=== PATIENT | female | born 1955 | race Caucasian/White ===

== ENCOUNTER 2019-07-19 23:20 | Observation (INO) | payer OTHER, MEDICARE ==
[~2019-07-19] VITALS: Ht 160 cm; Wt 70.9 kg
[~2019-07-19 23:20] MED LIST: ASPIRIN EC81 MG PO; CHANTIX1 EACH PO; COLACE100 MG PO; HYDROCHLOROTHIA25 MG PO; NORCO 5-325 TA1 EACH PO; SIMVASTATIN20 MG PO
--- NOTE | 2019-07-20 02:00 | NUR ---
PT ADMITTED WITH AFIB/RVR, HAD SUDDEN ONSET OF SHORTNESS OF BREATH AT HOME FOR 3 HOURS, ARRIVED TO ED WITH SPO2 60'S ON ROOM AIR AND HR 150'S. RECEIVED IV CARDIZEM AND DRIP IN ED, CURRENTLY NO DRIP RUNNING. PT IS ALERT AND ORIENTED X4, TRANSFERS SELF TO BED STEADY ON FEET. DENIES PAIN OR SOB AT THIS TIME. CURRENTLY ON 4L/OXYMASK.
--- NOTE | 2019-07-20 04:20 | NUR ---
Patient was moaning and groaning, I went to check and she said that she was having "kishan horses". She asked if she could have some assistance using the BSC and I offered her fresh water. Nothing further was needed at this time.
--- NOTE | 2019-07-20 06:49 | NUR ---
IN TO GIVE AM LASIX AND POTASSIUM, PT SLEEPING BUT AWAKENS EASILY. DENIES NEEDS OR PAIN, HR HAS BEEN 70'S SINUS RHYTHM. O2 HAS BEEN TITRATED DOWN TO 2L/NC WITH SPOT 97%. STATES SHE WILL BE NEEDING TO GET UP TO VOID SOON AND WILL CALL WHEN SHE IS READY.
--- NOTE | 2019-07-20 08:37 | NUR ---
PT SITTING UP IN BED EATING BREAKFAST ALERT AND ORIENTED. REQUESTS TO USE BR, AMB WITH STANDBY ASSIST. NO C/O SOB OR PAIN WITH AMBULATION. VOID 650 ML CLEAR YELLOW URINE. BACK TO BED. ASSESSMENT COMPLETE. O2 TITRATED TO 1L NC, SATS 93%. CRACKLES NOTED BILAT IN BASES. NO OTHER REQUESTS AT THIS TIME. CALL LIGHT IN REACH.
--- NOTE | 2019-07-20 10:28 | NUR ---
PT SITTING UP IN BED VISITING WITH FAMILY AT BEDSIDE. PT DENIES SOB OR PAIN. O2 1L/NC IN PLACE, O2 SATS 97%. HR 70'S. CASE MANAGEMENT IN TO VISIT PATIENT. NO REQUESTS AT THIS TIME.
--- NOTE | 2019-07-20 10:36 | NUR ---
02 SATS 98% ON 1L NC, PT DENIES SOB. OXYGEN OFF, WILL MONITOR SATS.
--- NOTE | 2019-07-20 11:09 | NUR ---
PATIENT HAD AN 8 BEAT RUN OF TACHYCARDIA AT 1009. RHYTHM WAS WIDE, IRREGULAR, AND RATE WAS LESS THAN 150s. DR. COLINDRES AWARE. PATIENT ASYMPTOMATIC WITH THIS. PT AMBULATES INTO BATHROOM TO VOID AND DENIES FEELING ANY SHORTNESS OF BREATH. CONTINUE TO MONITOR. SP02 IS 94% ON ROOM AIR AT THIS TIME.
[2019-07-20] MEDS ORDERED: ESTRADIOL10 MCG PV (11:33)
[2019-07-20] MEDS ORDERED: RANITIDINE HCL150 M1 PO (11:33)
[2019-07-20] MEDS ORDERED: VENTOLIN HFA18 GM INH (11:34)
[2019-07-20] MEDS ORDERED: FISH OIL 1,0001 EAC5 PO (11:36)
[2019-07-20] MEDS ORDERED: VITAMIN D31000 UNI1 PO (11:36)
[2019-07-20] MEDS ORDERED: GARLIC500 MG PO (11:36)
--- NOTE | 2019-07-20 11:37 | NUR ---
Medications reconciled using pharmacy records and patient interview
--- NOTE | 2019-07-20 12:09 | NUR ---
PT UP T0 BR WITH MINIMAL ASSIST TO VOID 400 ML CL YELLOW UINE. PT BRANDO WELL. BACK TO BED. PT DENIES CHEST PAIN OR SOB. RA SATS 95%. FAMILY AT BEDSIDE. ASSESSMENT COMPLETE. FINE CRACKLES NOTED IN RIGHT LOWER LOBE.
--- NOTE | 2019-07-20 13:12 | NUR ---
PT SITTING UP IN BED VISITING WITH FAMILY. MEDS GIVEN PER MD ORDER. IV MAG STARTED, PT C/O PAIN IN LEFT WRIST WITH INFUSION. INFLUSION SLOWED. WARM BLANKET APPLIED FOR COMFORT. PT DENIES PAIN OR SOB. HR 70'S, O2 93% ON RA. NO REQUESTS AT THIS TIME. CALL LIGHT IN REACH.
--- NOTE | 2019-07-20 14:01 | NUR ---
DR. COLINDRES IN ROOM TO EVALUATE PATIENT. PLAN IS FOR PATIENT TO STAY ANOTHER EVENING AND LIKELY GO HOME IN THE AM. PATIENT TO BE STARTED ON COUMADIN. PATIENT STILL HAVING PAIN IN IV SITE ON LEFT ARM. PT REMAINS IN SINUS RHYTHM, HR 70s. PT TO TRANSFER TO THE MEDICAL FLOOR ON TELEMETRY.
--- NOTE | 2019-07-20 15:15 | NUR ---
PT AMBULATORY TO MEDICAL FLOOR ROOM 116 FROM CCU. PT BRANDO WELL, STATES IT FEELS GOOD TO BE UP WALKING AROUND. REPORT GIVEN TO JOSE E TINAJERO. NO C/O SOB, RR EVEN AND UNLABORED. HR 70'S. TELE IN PLACE.
--- NOTE | 2019-07-20 15:18 | NUR ---
PT HERE FROM CCU. PT A&OX3, ON RA, RESP EVEN AND NON LABORED. PT DENIES PAIN AND SOB. PT DENIES ANY NEEDS AT THIS TIME. ORIENTED PT TO ROOM AND CALL LIGHT.
--- NOTE | 2019-07-20 18:42 | NUR ---
PT C/O OF SOB, AND "HAVING A HARD TIME BREATHING". VS TAKEN; BP 123/81, P81, R20, 96% ON RA. PLACED PT ON 2L OF OXYGEN AND CALLED DR. COLINDRES. NEW ORDER OBTAINED FOR DUONEB Q2HR PRN SOB. RT NOTIFIED TO ADMIN A/S/A/P. PT APPEARS ANXIOUS AND REPORTS HX OF ALBUTEROL USE PRN AT HOME.
--- NOTE | 2019-07-20 18:47 | NUR ---
RT IN ROOM FOR BREATHING TX.
--- NOTE | 2019-07-20 19:58 | NUR ---
RECEIVED REPORT FROM DAY SHIFT RN. PATIENT IS RESTING IN BED. FAMILY PRESENT. NO NEEDS NOTED. CALL LIGHT IN REACH.
--- NOTE | 2019-07-20 20:55 | NUR ---
DR COLINDRES CALLED TO ASK ABOUT PATIENTS STATUS. UPDATED MD. DR COLINDRES WOULD LIKE THIS RN TO ASK PATIENT ABOUT DIFFERENT PRN MEDICATIONS. WILL TALK TO PATIENT AND RETURN PHONE CALL.
--- NOTE | 2019-07-20 21:00 | NUR ---
DISCUSSED MEDICATIONS WITH PATIENT PER MD. PATIENT STATED THAT SHE TAKES ALLERGY MEDICATION NEEDED AT HOME. PATIENT ALSO TAKES NEEDED MEDICATION FOR CHRONIC SINUS ISSUES. UPDATE DR COLINDRES. DR COLINDRES TO PUT ORDERS IN FOR PATIENT.
--- NOTE | 2019-07-20 22:27 | NUR ---
PATIENT ASSESEMENT COMPLETED. PATIENT IS RESTING IN BED. PATIENT DENIES ANY SOB. VITALS TAKEN AND RECORDED. PATIENTS SCHEDULED EVENING MEDICATIONS GIVEN PER ORDER. PATIENT REMAINS ON TELE #6, SR, HR 72. DISCUSSED PRN MEDICATIONS AVAILABLE. PATIENT GIVEN PRN SUDAFED PER REQUEST FOR CONGESTION. PATIENT DENIES ANY FURTHER NEEDS. CALL LIGHT IN REACH.
--- NOTE | 2019-07-20 23:21 | NUR ---
PATIENT IS RESTING IN BED WITH EYES CLOSED, RR 17. TELE #6, SR, HR 70. CALL LIGHT IN REACH.
--- NOTE | 2019-07-21 01:06 | NUR ---
PATIENT IS RESTING IN BED WITH EYES CLOSED, RR 17. TELE #6, HR 70. CALL LIGHT IN REACH.
--- NOTE | 2019-07-21 03:01 | NUR ---
PATIENT CALLED WITH CONCERNS WITH HEARTBURN. PATIENT GIVEN PRN HEARTBURN MEDICATION PER ORDER. PATIENTS ICE WATER REFILLED. PATIENT DENIES ANY FURTHER NEEDS. CALL LIGHT IN REACH.
--- NOTE | 2019-07-21 04:50 | NUR ---
PATIENT RESTED WELL THROUGHOUT THE SHIFT. PATIENT IS ON A 2GM NA LIMIT DIET, TOLERATING IT WELL, AND NO NAUSEA NOTED. 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 NAGIT IS ON TELE $6, SR, HR IN THE 70'S. PATIENT IS INDEPENDENT IN THE ROOM. PATIENT DENIED ANY SOB. PATIENT HAD CONCERNS OF DISCOMFORT FROM SINUS CONGESTION, PRN MEDICATION GIVEN X1. PATIENT IS AAOX3 AND USES CALL LIGHT APPROPRIATELY.
--- NOTE | 2019-07-21 05:12 | NUR ---
PATIENTS VITALS TAKEN AND RECORDED. PATIENTS INTAKE AND OUPUT RECORDED. PATIENT IS RESTING IN BED. PATIENT DENIES ANY PAIN OR SOB. PATIENT DENIES ANY NEEDS. CALL LIGHT IN REACH. PATIENT REMAINS ON TELE #6, SR, HR 68.
--- NOTE | 2019-07-21 07:12 | NUR ---
RECIEVED BEDSIDE REPORT FROM JOSE E ALLEN. PT IN BATHROOM. WHITE BOARD UPDATED.
--- NOTE | 2019-07-21 09:18 | EKG ---
[facility] [address] [facility] [place] [address] Signed Atrial fibrillation with rapid ventricular response Rightward axis Abnormal ECG No previous ECGs available Confirmed by KAMAR COLINDRES MD ([id number]) on 07/21/2019 9:18:08 AM Electronically Signed By: KAMAR COLINDRES MD 07/21/19 0918 PATIENT NAME: MADISON ANDRES KARLA Electrocardiogram DATE OF : 51 PHYSICIAN: KAMAR COLINDRES MD REPORT #: [id number] REPORT IS CONFIDENTIAL AND NOT TO BE RELEASED WITHOUT AUTHORIZATION
--- NOTE | 2019-07-21 09:18 | EKG ---
[facility] [address] [facility] [place] [address] Signed Normal sinus rhythm Nonspecific ST and T wave abnormality Prolonged QT Abnormal ECG When compared with ECG of 19-JUL-2019 23:37, (Unconfirmed) Sinus rhythm has replaced Atrial fibrillation Vent. rate has decreased BY 67 BPM Inverted T waves have replaced nonspecific T wave abnormality in Inferior leads Nonspecific T wave abnormality now evident in Lateral leads Confirmed by KAMAR COLINDRES MD ([id number]) on 07/21/2019 9:18:22 AM Electronically Signed By: KAMAR COLINDRES MD 07/21/19 0918 PATIENT NAME: MADISON ANDRES KARLA Electrocardiogram DATE OF : 51 PHYSICIAN: KAMAR COLINDRES MD REPORT #: [id number] REPORT IS CONFIDENTIAL AND NOT TO BE RELEASED WITHOUT AUTHORIZATION
[2019-07-21] MEDS ORDERED: LISINOPRIL2.5 MG PO (09:56)
[2019-07-21] MEDS ORDERED: METOPROLOL SUCC25 MG PO (09:56)
[2019-07-21] MEDS ORDERED: WARFARIN SODIUM5 MG PO (09:57)
--- NOTE | 2019-07-21 09:58 | NUR ---
PATIENT WOULD LIKE TO SHOWER AT HOME WHEN DISCARGED TODAY. WASH CLOTH AND ORAL CARE SET UP FOR USE. FRESH ICE WATER GIVEN. CALL BUTTON IN REACH. NO OTHER NEEDS AT THIS TIME.
--- NOTE | 2019-07-21 11:33 | NUR ---
GAVE PT DISCHARGE INSTRUCTIONS AND EDUCATION. QUESTIONS ASKED AND ANSWERED. ANGEL, SORT OPERATIONS SUPERVISOR IN WITH PT NOW.
--- NOTE | 2019-07-21 11:39 | NUR ---
PATIENT GETTING READY TO DISCHARGE. SHE IS STARTED ON COUMADIN. SHE SAID SHE RECEIVED A LIST OF HIGH VITAMIN K FOODS AND LOW VITAMIN K FOODS. I PROVIDED HER WITH MY EDUCATION HANDOUT THAT ALSO INCLUDES FOODS HIGH IN VITAMIN K BUT ALSO INCLUDES REMINDERS ABOUT TAKING A MULTI-VITAMIN, VITAMIN E, FISH OIL, AND HERBAL SUPPLEMENTS. SHE ALREADY TAKES FISH OIL AND GARLIC. SHE APPRECIATED THE INFO.
--- NOTE | 2019-07-21 12:52 | NUR ---
Certified Heart Failure Nurse Notes: Diagnosis: Discharge Diagnosis/Diagnoses: #1. Acute respiratory failure with hypercapnia and hypoxia secondary to acute cardiogenic pulmonary edema, resolved #2. Systolic heart failure, new diagnosis, suspected acute on chronic, with left ventricular ejection fraction 25-30% with low normal right ventricular systolic function. #3. Acute cardiogenic pulmonary edema secondary to atrial fibrillation with rapid ventricular rate, resolved #4. Paroxysmal atrial fibrillation with rapid ventricular rate, new diagnosis, converted spontaneously to sinus rhythm #5. Moderate mitral regurgitation with moderately dilated left atrium #6. Transaminitis, secondary to #2 PCP: LULI CORNELIUS MD Echocardiogram was completed this visit EF 25-30% Terry Inhibitor or ARB for LVSD prescribed -Yes Beta David ordered -Yes Admit Wt.: 156 lb Today's Wt.: 156 lb Admit BNP: 1270 Weight monitoring: Scale present in home. Instructed how to weigh daily/ when to notify PCP Symptom management: Addressed monitoring and reporting changes in weight or symptoms utilizing Zones form Diet: Cooks for self, will be staying with family temporarily. Encouraged low sodium diet and avoid high processed foods. Seen by gumming machine operator for warfarin instructions. Medication routine: Has daily pill reminder box Tobacco: current use Advanced directive: Not discussed at this initial visit Follow-up plans: Patient with new diagnosis of HFrEF and is prepared for discharge. She is aware that this service will call her to come in for an outpatient heart failure education session to discuss diet and activity in detail. Will also look into referral to smoking cessation counseling. Teaching materials given today: Luis Alberto kurtz, [facility] contact information
--- NOTE | 2019-07-22 14:17 | NUR ---
Certified Heart Failure Nurse Follow Up Call: Dasia was discharged from [facility] 07/21/19. She states she is feeling weak. Was able to obtain medications as ordered and does not have any questions. Her follow up appointment with PCP Telly is on 07/29/19. She made an appointment to come in for a heart failure education session with this service on 07/28/19. She states she is not at her brothers and will call me back today.
== END 2019-07-21 11:50 | disposition home or self-care (01) ==
LOC: ED 23:20 → CCU 23:22 → MS 07-20 15:15
PROVIDERS: ADMIT Internal Medicine
DX: J96.01 Acute respiratory failure with hypoxia (principal); J96.02 Acute respiratory failure with hypercapnia; J81.0 Acute pulmonary edema; F17.210 Nicotine dependence, cigarettes, uncomplicated; I48.0 Paroxysmal atrial fibrillation; R74.0 Nonspecific elevation of levels of transaminase and lactic acid dehydrogenase [LDH]; J45.909 Unspecified asthma, uncomplicated; I11.0 Hypertensive heart disease with heart failure; I50.20 Unspecified systolic (congestive) heart failure; E78.5 Hyperlipidemia, unspecified; I51.7 Cardiomegaly; I34.0 Nonrheumatic mitral (valve) insufficiency; Z88.2 Allergy status to sulfonamides; Z79.82 Long term (current) use of aspirin; Z79.890 Hormone replacement therapy; Z79.899 Other long term (current) drug therapy
CPT/HCPCS: 36415; 36600; 71045; 80053; 82803; 83735; 83880; 84132; 84450; 84460; 84484; 85025; 85379; 85610; 93005; 93010; 93306; 94640; 94660; 94760; 96365; 96372; 96375; 96376; 99291; 99406; G0378; J1650; J1940; J3475

== ENCOUNTER 2020-09-09 06:26 | Day surgery (SDC) | payer MEDICARE ==
[~2020-09-09] VITALS: Ht 157.5 cm; Wt 78.9 kg
[~2020-09-09 06:26] MED LIST changes: +ALDACTONE25 MG PO; +COREG25 MG PO; +ENTRESTO 97 MG1 EACH PO; +ESTRADIOL10 MCG PV; +FISH OIL 1,0001 EAC5 PO; +GARLIC500 MG PO; +LIPITOR40 MG PO; +LISINOPRIL2.5 MG PO; +LISINOPRIL5 MG PO; +MAGNESIUM400 MG PO; +METOPROLOL SUCC25 MG PO; +OMEPRAZOLE20 M1 PO; +PREMARIN30 GM; +RANITIDINE HCL150 M1 PO; +VENTOLIN HFA18 GM INH; +VITAMIN D31000 UNI1 PO; +VITAMIN D350 MCG PO; +WARFARIN SODIUM1 MG PO; +WARFARIN SODIUM5 MG PO; +XARELTO20 MG PO
[2020-09-09] MEDS ORDERED: IBUPROFEN600 MG PO (08:16)
[2020-09-09] MEDS ORDERED: ACETAMINOPHEN500 MG PO (08:18)
[2020-09-09] MEDS ORDERED: OXYCODON-ACETA1 EACH PO (08:20)
--- NOTE | 2020-09-09 08:22 | NUR ---
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 PT REACTIVE TO TACTILE STIMULI AND EASILY FALLS BACK TO SLEEP. 0815 PT WAKES AND DENIES PAIN AND REPORTS UNABLE TO MOVE LEGS AND ONLY LIGHT PRESSURE WITH TOUCHING. PT BACK TO SLEEP WITH SMALL AMOUNT OF SNORING. 0820 BP INCREASED. RN WILL CONTINUE TO MONITOR.
--- NOTE | 2020-09-09 09:27 | NUR ---
PT RETURNED TO DS ROOM 4. SPINAL LEVEL AT L4. PT FEELS SOME WEAKNESS IN BILAT LOWER EXTREMITIES. DENIES PAIN OR NAUSEA
--- NOTE | 2020-09-09 11:35 | NUR ---
STEADY ON FEET WITH ONE PERSON STAND BY ASSIST FOR AMBULATION TO BR. CONTINUES TO DENY NAUSEA OR PAIN. REVIEWED DISCHARGE INSTRUCTIONS WITH PT AT BEDSIDE. CONFIRMED TO NOT START XRALTO UNTIL SATURDAY (09/11/20). PT GETS DRESSED SITTING DOWN WITHOUT PROBLEMS. DISCHARGED WITH PT INSTRUCTIONS AND ORIGIONAL RX.
--- NOTE | 2020-09-12 15:17 | OR ---
[facility] [address] [place], [place] [address] Signed DATE OF OPERATION: 09/09/2020 SURGEON: Bonita Hemphill MD PREOPERATIVE DIAGNOSIS: Pilonidal disease. POSTOPERATIVE DIAGNOSIS: Pilonidal disease. PROCEDURE: Pilonidal excision. ANESTHESIA: Saddle block, Victoria JAVA DEVELOPER ANALYST and local 20 mL of 0.25% Marcaine with epinephrine. INDICATION: A 65-year-old white woman is a patient of Dr. 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 She has had no specific drainage procedure. She is here to undergo excision of pilonidal disease. She understands the risks of bleeding, infection, recurrence and so forth and wished to proceed. FINDINGS: A chronic erythematous pustule like lesion was noted to the right of the midline in internatal cleft. This was connected to the midline itself. There was no large collection of hair or anything of that sort, only chronic granulation. Limited internatal cleft excision was undertaken excising all the diseased tissue. DESCRIPTION OF PROCEDURE: The patient was brought to the operating room after undergoing a saddle block anesthetic in the preoperative area. She did have some vagal symptoms with this, which abated with time. She was placed in a prone jackknife position and buttocks were taped apart. The internatal cleft area was prepared with a Betadine based solution and draped sterilely. Probing of the site to the right of the midline showed it to connect to the midline itself. Elliptical incision was undertaken in a limited way of the internatal cleft soft tissue including the subcutaneous tissue and fat. There was a chronic granulation tissue within the excised tissue. Hemostasis was assured with electrocautery. A 20 mL of 0.25% Marcaine with epinephrine injected locally. The wound was packed with . The patient returned to the supine position and taken to the recovery room Electronically Signed By: BONITA HEMPHILL MD 09/12/20 1517 PATIENT NAME: MADISON ANDRES OPERATIVE REPORT DATE OF : 51 REPORT #: [id number] PHYSICIAN: BONITA HEMPHILL MD PCP: KRISH CORNELIUS MD REPORT IS CONFIDENTIAL AND NOT TO BE RELEASED WITHOUT AUTHORIZATION [facility] [address] [place] [id number] Signed in good condition. BLOOD LOSS: Minimal. COMPLICATIONS: None. MD SCOTT Holly/MODL /[id number] cc: Krish Cornelius Copies: ~ Electronically Signed By: BONITA HEMPHILL MD 09/12/20 1517 PATIENT NAME: MADISON ANDRES OPERATIVE REPORT DATE OF : 51 REPORT #: [id number] PHYSICIAN: BONITA HEMPHILL MD PCP: KRISH CORNELIUS MD REPORT IS CONFIDENTIAL AND NOT TO BE RELEASED WITHOUT AUTHORIZATION
--- NOTE | 2020-09-12 15:22 | PATH ---
[facility] [address] [facility] [place], [place] [address] Signed SPECIMEN(S): A PILONIDAL CYST TISSUE SPECIMEN SOURCE: A. PILONIDAL CYST TISSUE CLINICAL HISTORY: Pilonidal disease. Excision of pilonidal cyst. FINAL PATHOLOGIC DIAGNOSIS: Pilonidal cyst tissue: - Benign skin with intradermal benign squamous epithelial cyst and abundant acute intradermal inflammation and abscess. COMMENT: The histologic features are compatible with the clinical history of "pilonidal disease". JVR:cml:C2NR MICROSCOPIC EXAMINATION: Histologic sections of all submitted blocks are examined by light microscopy. These findings, together with the gross examination, support the pathologic diagnosis. GROSS DESCRIPTION: The specimen, labeled "SB, A.," and designated on the requisition "pilonidal cyst tissue," is received in formalin and consists of la elliptical skin with deep subcutaneous tissue measuring 4.2 x 1.6 x 1.9 cm. The cutaneous surface is smooth and la with a previously sectioned lateral superficially cut measuring 4.0 cm in length. The specimen is serially sectioned and reveals hemorrhagic ulceration within the previous cut (possible sinus tract). Pearl Diver sections are submitted in cassette (A1). AT (under the direct supervision of a pathologist) The Gross Description was prepared using a voice recognition system. The report was reviewed for accuracy; however, sound-alike word errors, addition and/or deletions may occur. If there is any question about this report, please contact Client Services. PERFORMING LABORATORY: The technical component was performed by [facility], [address] [place] [id number] (Paint Stripper: Kinsey Steinberg MD; CLIA# [id number]). PATIENT NAME: MADISON ANDRES PATHOLOGY DATE OF : 51 REPORT #: [id number] PHYSICIAN: ROSEANNE PATHOLOGY PCP: LULI CORNELIUS MD REPORT IS CONFIDENTIAL AND NOT TO BE RELEASED WITHOUT AUTHORIZATION [facility] [address] [facility] [place] [place] [address] Signed Professional interpretation was performed [place] [address] (Paint Stripper: Anthony Santizo M.D.). Diagnostician: Anthony Santizo MD Pathologist Electronically Signed 09/12/2020 Copies: ~ PATIENT NAME: MADISON ANDRES PATHOLOGY DATE OF : 51 REPORT #: [id number] PHYSICIAN: ROSEANNE PATHOLOGY PCP: LULI CORNELIUS MD REPORT IS CONFIDENTIAL AND NOT TO BE RELEASED WITHOUT AUTHORIZATION
== END 2020-09-09 11:10 | disposition home or self-care (01) ==
LOC: DS 06:26
PROVIDERS: ATTEND Surgery
PROC: 0JB93ZZ Excision of Buttock Subcutaneous Tissue and Fascia, Percutaneous Approach (ICD-10-PCS; principal; 2020-09-09 06:45)
DX: L98.8 Other specified disorders of the skin and subcutaneous tissue (principal); I48.91 Unspecified atrial fibrillation; I50.9 Heart failure, unspecified; J43.9 Emphysema, unspecified; K21.9 Gastro-esophageal reflux disease without esophagitis; F17.210 Nicotine dependence, cigarettes, uncomplicated; Z88.2 Allergy status to sulfonamides; Z79.01 Long term (current) use of anticoagulants; Z79.899 Other long term (current) drug therapy; Z86.19 Personal history of other infectious and parasitic diseases
CPT/HCPCS: 00400; 93005; 93010; J0690; J1644; J2001; J2250; J2704; J3010; J7121

== ENCOUNTER 2023-04-25 21:11 | Emergency (ER) | payer OTHER, MEDICARE, MEDICAID ==
[~2023-04-25] VITALS: Ht 162.6 cm; Wt 88.1 kg
[~2023-04-25 21:11] MED LIST changes: +ACETAMINOPHEN500 MG PO; +IBUPROFEN600 MG PO; +OXYCODON-ACETA1 EACH PO
[2023-04-25] MEDS ORDERED: ESTRING1 EACH VAGINAL (21:25)
[2023-04-25 23:34] VITALS: BP 119/51
== END 2023-04-25 23:45 | disposition home or self-care (01) ==
LOC: ED 21:11
DX: S63.502A Unspecified sprain of left wrist, initial encounter (principal); W01.10XA Fall on same level from slipping, tripping and stumbling with subsequent striking against unspecified object, initial encounter; I10 Essential (primary) hypertension; E78.00 Pure hypercholesterolemia, unspecified; J45.909 Unspecified asthma, uncomplicated; F17.200 Nicotine dependence, unspecified, uncomplicated; Z88.2 Allergy status to sulfonamides; Z79.899 Other long term (current) drug therapy
CPT/HCPCS: 73110; 73130; 99283-25; A9270

== ENCOUNTER 2023-06-12 09:15 | Emergency (ER) | payer MEDICARE, OTHER ==
[~2023-06-12] VITALS: Ht 162.6 cm; Wt 88.0 kg
--- OUTSIDE RECORDS SUMMARY | ~2023-06-12 | XMS | Continuity of Care Document ---
Demographics + + + | Address | [address] | | | [place] [address] | + + + | Preferred Language | Unknown | + + + | Marital Status | | + + + | Islam Affiliation | Unknown | + + + | Race | White | + + + | Ethnic Group | Not or | + + + Author + + + | Author | [facility] | + + + | Organization | [facility] | + + + | Address | [address] | | | [place] [address] | + + + | Phone | | + + + Care Team Providers + + + + | Care Head Resident Name | Role | Phone | + + + + Unavailable | Unavailable | + + + + Unavailable | Unavailable | + + + + Unavailable | Unavailable | + + + + Allergies and Intolerances + + + + + + | date | description | facility | reaction | severity | + + + + + + | (no date) | Sulfa | [facility] | (no reaction) | (no severity) | | | (Sulfonamide | | | | | | Antibiotics) | | | | + + + + + + Encounters No information. Functional Status No information. Immunizations No information. Medications + + + + | date | description | facility | + + + + | 2020-09-09 00:00 | OXYCODONE | [facility] | | | HCL/ACETAMINOPHEN | | + + + + | 2020-09-09 00:00 | OXYCODONE | [facility] | | | HCL/ACETAMINOPHEN | | + + + + | 2023-04-25 00:00 | RIVAROXABAN | [facility] | + + + + | 2023-06-10 00:00 | RIVAROXABAN | [facility] | + + + + | 2023-06-10 00:00 | COLCHICINE | [facility] | + + + + | 2023-04-25 00:00 | SACUBITRIL/VALSARTAN | [facility] | + + + + | 2023-06-10 00:00 | SACUBITRIL/VALSARTAN | [facility] | + + + + | 2020-09-09 00:00 | IBUPROFEN | [facility] | + + + + | 2020-09-09 00:00 | IBUPROFEN | [facility] | + + + + | 2023-04-25 00:00 | RANITIDINE HCL | [facility] | + + + + | 2023-06-10 00:00 | RANITIDINE HCL | [facility] | + + + + | 2020-09-09 00:00 | ACETAMINOPHEN | [facility] | + + + + | 2020-09-09 00:00 | ACETAMINOPHEN | [facility] | + + + + | 2023-04-25 00:00 | GARLIC | [facility] | + + + + | 2023-06-10 00:00 | GARLIC | [facility] | + + + + | 2023-04-25 00:00 | CHOLECALCIFEROL (VITAMIN | [facility] | | | D3) | | + + + + | 2023-06-10 00:00 | CHOLECALCIFEROL (VITAMIN | [facility] | | | D3) | | + + + + | 2023-04-25 00:00 | SPIRONOLACTONE | [facility] | + + + + | 2023-06-10 00:00 | SPIRONOLACTONE | [facility] | + + + + | 2023-04-25 00:00 | CARVEDILOL | [facility] | + + + + | 2023-06-10 00:00 | CARVEDILOL | [facility] | + + + + | 2023-04-25 00:00 | MAGNESIUM OXIDE | [facility] | + + + + | 2023-06-10 00:00 | MAGNESIUM OXIDE | [facility] | + + + + | 2023-04-25 00:00 | ASPIRIN | [facility] | + + + + | 2023-06-10 00:00 | ASPIRIN | [facility] | + + + + | 2023-04-25 00:00 | HYDROCHLOROTHIAZIDE | [facility] | + + + + | 2023-06-10 00:00 | HYDROCHLOROTHIAZIDE | [facility] | + + + + | 2023-04-25 00:00 | LISINOPRIL | [facility] | + + + + | 2023-06-10 00:00 | LISINOPRIL | [facility] | + + + + | 2023-04-25 00:00 | SIMVASTATIN | [facility] | + + + + | 2023-06-10 00:00 | SIMVASTATIN | [facility] | + + + + | 2023-04-25 00:00 | OMEPRAZOLE | [facility] | + + + + | 2023-06-10 00:00 | OMEPRAZOLE | [facility] | + + + + | 2023-04-25 00:00 | ATORVASTATIN | [facility] | + + + + | 2023-06-10 00:00 | ATORVASTATIN | [facility] | + + + + | 2023-04-25 00:00 | Estrogens, Conjugated | [facility] | + + + + | 2023-06-10 00:00 | Estrogens, Conjugated | [facility] | + + + + | 2023-04-25 00:00 | VARENICLINE TARTRATE | [facility] | + + + + | 2023-06-10 00:00 | VARENICLINE TARTRATE | [facility] | + + + + | 2023-04-25 00:00 | Cholecalciferol (Vitamin | [facility] | | | D3) | | + + + + | 2023-06-10 00:00 | Cholecalciferol (Vitamin | [facility] | | | D3) | | + + + + | 2023-04-25 00:00 | OMEGA-3/DHA/EPA/FISH OIL | [facility] | + + + + | 2023-06-10 00:00 | OMEGA-3/DHA/EPA/FISH OIL | [facility] | + + + + | 2023-04-25 00:00 | ESTRADIOL | [facility] | + + + + | 2023-06-10 00:00 | ESTRADIOL | [facility] | + + + + | 2023-04-25 00:00 | WARFARIN SODIUM | [facility] | + + + + | 2023-06-10 00:00 | WARFARIN SODIUM | [facility] | + + + + | 2023-04-25 00:00 | ALBUTEROL SULFATE | [facility] | + + + + | 2023-06-10 00:00 | ALBUTEROL SULFATE | [facility] | + + + + | 2019-07-21 00:00 | METOPROLOL SUCCINATE | [facility] | + + + + | 2019-07-21 00:00 | METOPROLOL SUCCINATE | [facility] | + + + + | 2023-04-25 00:00 | Estradiol | [facility] | + + + + | 2023-06-10 00:00 | Estradiol | [facility] | + + + + Problems + + + + | date | description | facility | + + + + | 2016-12-20 00:00 | Sprain of right foot | [facility] | + + + + | 2016-12-20 00:00 | Sprain of right foot | [facility] | + + + + | 2016-12-20 00:00 | Encounter for medical | [facility] | | | screening examination | | + + + + | 2016-12-20 00:00 | Encounter for medical | [facility] | | | screening examination | | + + + + | 2019-07-20 00:00 | Flash pulmonary edema | [facility] | + + + + | 2019-07-20 00:00 | Flash pulmonary edema | [facility] | + + + + | 2022-09-28 12:07 | Essential (primary) | [facility] | | | hypertension | | + + + + | 2022-09-28 12:07 | CHRONIC ATRIAL | [facility] | | | FIBRILLATION, UNSPECIFIED | | + + + + | 2022-09-28 12:07 | COUGH, UNSPECIFIED | [facility] | + + + + | 2022-09-28 12:07 | SHORTNESS OF BREATH | [facility] | + + + + | 2022-10-15 11:41 | OTH ABN AND INCONCLUSIVE | [facility] | | | FINDINGS ON DX IMAGING OF | | | | BREAST | | + + + + | 2022-10-19 09:50 | HYPERTENSIVE HEART DISEASE | [facility] | | | WITH HEART FAILURE | | + + + + | 2022-10-19 09:50 | UNSPECIFIED ATRIAL | [facility] | | | FIBRILLATION | | + + + + | 2022-10-19 09:50 | HEART FAILURE, UNSPECIFIED | [facility] | | | | | + + + + | 2022-10-19 09:50 | OTHER SPECIFIED ABNORMAL | [facility] | | | FINDINGS OF BLOOD CHEMISTRY | | | | | | + + + + | 2022-10-19 09:50 | ENCOUNTER FOR THERAPEUTIC | [facility] | | | DRUG LEVEL MONITORING | | + + + + | 2022-11-06 07:45 | LOCALIZED SWELLING, MASS | [facility] | | | AND LUMP, TRUNK | | + + + + | 2022-11-06 07:45 | OTHER NONSPECIFIC ABNORMAL | [facility] | | | FINDING OF LUNG FIELD | | + + + + | 2023-02-11 09:53 | LIVER DISEASE, UNSPECIFIED | [facility] | | | | | + + + + | 2023-02-11 09:53 | HEPATOMEGALY, NOT | [facility] | | | ELSEWHERE CLASSIFIED | | + + + + | 2023-02-11 09:53 | ENCNTR FOR GENERAL ADULT | [facility] | | | MEDICAL EXAM W/O ABNORMAL | | | | FINDINGS | | + + + + | 2023-02-11 09:53 | ENCOUNTER FOR SCREENING | [facility] | | | FOR OSTEOPOROSIS | | + + + + | 2023-02-11 09:53 | ASYMPTOMATIC MENOPAUSAL | [facility] | | | STATE | | + + + + | 2023-03-21 15:30 | OTHER SPECIFIED DISORDERS | [facility] | | | OF BREAST | | + + + + | 2023-03-21 15:30 | ENCNTR SCREEN MAMMOGRAM | [facility] | | | FOR MALIGNANT NE | | + + + + | 2023-04-25 00:00 | Sprain of left wrist | [facility] | + + + + | 2023-04-25 00:00 | Sprain of left wrist | [facility] | + + + + | 2023-04-25 21:12 | PURE HYPERCHOLESTEROLEMIA, | [facility] | | | UNSPECIFIED | | + + + + | 2023-04-25 21:12 | NICOTINE DEPENDENCE, | [facility] | | | UNSPECIFIED, UNCOMPLICATED | | + + + + | 2023-04-25 21:12 | Essential (primary) | [facility] | | | hypertension | | + + + + | 2023-04-25 21:12 | UNSPECIFIED ASTHMA, | [facility] | | | UNCOMPLICATED | | + + + + | 2023-04-25 21:12 | PAIN IN LEFT WRIST | [facility] | + + + + | 2023-04-25 21:12 | UNSPECIFIED SPRAIN OF LEFT | [facility] | | | WRIST, INITIAL ENCOUNTE | | + + + + | 2023-04-25 21:12 | FALL SAME LEV FROM | [facility] | | | SLIP/TRIP W STRIKE AGNST | | | | UNSP O | | + + + + | 2023-04-25 21:12 | OTHER INSULATION POWER UNIT TENDER (CURRENT) | [facility] | | | DRUG THERAPY | | + + + + | 2023-04-25 21:12 | ALLERGY STATUS TO | [facility] | | | SULFONAMIDES STATUS | | + + + + | 2023-06-06 08:33 | UNILATERAL PRIMARY | [facility] | | | OSTEOARTHRITIS, UNSPE | | + + + + | 2023-06-06 08:33 | UNILATERAL PRIMARY | [facility] | | | OSTEOARTHRITIS, RIGHT HIP | | + + + + | 2023-06-06 09:00 | UNILATERAL PRIMARY | [facility] | | | OSTEOARTHRITIS, UNSPE | | + + + + | 2023-06-10 00:00 | Chest pain | [facility] | + + + + Procedures No information. Results/Labs +--------+--------+ +---------+--------+---------+ | test | date | facility | value | unit | notes | +--------+--------+ +---------+--------+---------+ + + | Result panel 1 | + + + + + +--------+ + + | | 2023-06-10 | [facility] | 11.1 | (missing) | (missing) | | (unavailable | 08:22:07 [facility] | | | | + + + +--------+ + + + + | Result panel 2 | + + + + + +--------+ + + | | 2023-06-10 | [facility] | 73.0 | (missing) | (missing) | | (unavailable | 08:22:07 | [facility] | | | | + + + +--------+ + + + + | Result panel 3 | + + + + + +--------+ + + | | 2023-06-10 | [facility] | 18.1 | (missing) | (missing) | | (unavailable | 08:22:07 | [facility] | | | | + + + +--------+ + + + + | Result panel 4 | + + + + + +-------+ + + | | 2023-06-10 | [facility] | 8.6 | (missing) | (missing) | | (unavailable | 08:22:07 | [facility] | | | | + + + +-------+ + + + + | Result panel 5 | + + + + + +-------+ + + | | 2023-06-10 | [facility] | 0.1 | (missing) | (missing) | | (unavailable | 08:: | [facility] | | | | + + + +-------+ + + + + | Result panel 6 | + + + + + +-------+ + + | | 2023-06-10 | [facility] | 0.2 | (missing) | (missing) | | (unavailable | 08:: | [facility] | | | | + + + +-------+ + + + + | Result panel 7 | + + + + + +-------+---------+ + | | 2023-06-10 | [facility] | 148 | mg/dL | (missing) | | (unavailable | 08::07 | [facility] | | | | + + + +-------+---------+ + + + | Result panel 8 | + + + + + +------+---------+ + | | 2023-06-10 | [facility] | 23 | mg/dL | (missing) | | (unavailable | 08:22:07 | [facility] | | | | + + + +------+---------+ + + + | Result panel 9 | + + + + + +--------+---------+ + | | 2023-06-10 | [facility] | 0.98 | mg/dL | (missing) | | (unavailable | 08:22:07 | [facility] | | | | + + + +--------+---------+ + + + | Result panel 10 | + + + + + +------+ + + | | 2023-06-10 | [facility] | 62 | (missing) | (missing) | | (unavailable | 08:22:07 | [facility] | | | | + + + +------+ + + + + | Result panel 11 | + + + + + +---------+ + + | | 2023-06-10 | [facility] | 23.46 | (missing) | (missing) | | (unavailable | 08:22:07 | [facility] | | | | + + + +---------+ + + + + | Result panel 12 | + + + + + +--------+ + + | | 2023-06-10 | [facility] | 4.33 | (missing) | (missing) | | (unavailable | 08:22:07 | [facility] | | | | + + + +--------+ + + + + | Result panel 13 | + + + + + +-------+ + + | | 2023-06-10 | [facility] | 136 | (missing) | (missing) | | (unavailable | 08:22:07 | [facility] | | | | + + + +-------+ + + + + | Result panel 14 | + + + + + +-------+ + + | | 2023-06-10 | [facility] | 3.7 | (missing) | (missing) | | (unavailable | 08:22:07 | [facility] | | | | + + + +-------+ + + + + | Result panel 15 | + + + + + +-------+ + + | | 2023-06-10 | [facility] | 101 | (missing) | (missing) | | (unavailable | 08:22:07 | [facility] | | | | + + + +-------+ + + + + | Result panel 16 | + + + + + +------+ + + | | 2023-06-10 | [facility] | 24 | (missing) | (missing) | | (unavailable | 08:22:07 | [facility] | | | | + + + +------+ + + + + | Result panel 17 | + + + + + +--------+ + + | | 2023-06-10 | [facility] | 14.7 | (missing) | (missing) | | (unavailable | | [facility] | | | | + + + +--------+ + + + + | Result panel 18 | + + + + + +-------+---------+ + | | 2023-06-10 | [facility] | 9.3 | mg/dL | (missing) | | (unavailable | 08:: [facility] | | | | + + + +-------+---------+ + + + | Result panel 19 | + + + + + +-------+ + + | | 2023-06-10 | [facility] | 7.5 | (missing) | (missing) | | (unavailable | 08: | [facility] | | | | + + + +-------+ + + + + | Result panel 20 | + + + + + +-------+ + + | | 2023-06-10 | [facility] | 3.6 | (missing) | (missing) | | (unavailable | 08::07 | [facility] | | | | + + + +-------+ + + + + | Result panel 21 | + + + + + +-------+ + + | | 2023-06-10 | [facility] | 3.9 | (missing) | (missing) | | (unavailable | 08:22:07 | [facility] | | | | + + + +-------+ + + + + | Result panel 22 | + + + + + +--------+ + + | | 2023-06-10 | [facility] | 0.92 | (missing) | (missing) | | (unavailable | 08:22:07 | [facility] | | | | + + + +--------+ + + + + | Result panel 23 | + + + + + +--------+ + + | | 2023-06-10 | [facility] | 13.0 | (missing) | (missing) | | (unavailable | 08:22:07 | [facility] | | | | + + + +--------+ + + + + | Result panel 24 | + + + + + +-------+ + + | | 2023-06-10 | [facility] | 0.4 | (missing) | (missing) | | (unavailable | 08:22:07 | [facility] | | | | + + + +-------+ + + + + | Result panel 25 | + + + + + +------+ + + | | 2023-06-10 | [facility] | 16 | (missing) | (missing) | | (unavailable | 08:22:07 | [facility] | | | | + + + +------+ + + + + | Result panel 26 | + + + + + +------+ + + | | 2023-06-10 | [facility] | 46 | (missing) | (missing) | | (unavailable | 08:22:07 | [facility] | | | | + + + +------+ + + + + | Result panel 27 | + + + + + +-------+ + + | | 2023-06-10 | [facility] | 163 | (missing) | (missing) | | (unavailable | 08:22:07 | [facility] | | | | + + + +-------+ + + + + | Result panel 28 | + + + + + +--------+ + + | | 2023-06-10 | [facility] | 40.0 | (missing) | (missing) | | (unavailable | 08:22:07 | [facility] | | | | + + + +--------+ + + + + | Result panel 29 | + + + + + +--------+ + + | | 2023-06-10 | [facility] | 92.4 | (missing) | (missing) | | (unavailable | 08:22:07 | [facility] | | | | + + + +--------+ + + + + | Result panel 30 | + + + + + +--------+ + + | | 2023-06-10 | [facility] | 29.9 | (missing) | (missing) | | (unavailable | 08:22:07 | [facility] | | | | + + + +--------+ + + + + | Result panel 31 | + + + + + +--------+ + + | | 2023-06-10 | [facility] | 32.4 | (missing) | (missing) | | (unavailable | 08:22:07 | [facility] | | | | + + + +--------+ + + + + | Result panel 32 | + + + + + +--------+ + + | | 2023-06-10 | [facility] | 13.9 | (missing) | (missing) | | (unavailable | 08:22:07 | [facility] | | | | + + + +--------+ + + + + | Result panel 33 | + + + + + +-------+ + + | | 2023-06-10 | [facility] | 350 | (missing) | (missing) | | (unavailable | 08:22:07 | [facility] | | | | + + + +-------+ + + + + | Result panel 34 | + + + + + +---------+ + + | | 2023-06-10 | [facility] | 178.7 | (missing) | (missing) | | (unavailable | 09:30:07 | [facility] | | | | + + + +---------+ + + Social History No information. Vital Signs + + + +---------+ | date | measurement | value | units | + + + +---------+ | 2023-04-25 00:00 | BMI | 33.3 | kg/m2 | + + + +---------+ | 2023-04-25 00:00 | BP_diastolic | 51 | mmHg | + + + +---------+ | 2023-04-25 00:00 | BP_systolic | 119 | mmHg | + + + +---------+ | 2023-04-25 00:00 | heart_rate | 67 | /min | + + + +---------+ | 2023-04-25 00:00 | height_metric | 162.56 | cm | + + + +---------+ | 2023-04-25 00:00 | height_standard | 64 | in | + + + +---------+ | 2023-04-25 00:00 | o2_saturation | 97 | % | + + + +---------+ | 2023-04-25 00:00 | respiration_rate | 16 | /min | + + + +---------+ | 2023-04-25 00:00 | temperature_metric | 37 | C | | | | | | + + + +---------+ | 2023-04-25 00:00 | | 98.6 | F | | | temperature_standar | | | | | d | | | + + + +---------+ | 2023-04-25 00:00 | weight_metric | 88.1 | kg | + + + +---------+ | 2023-04-25 00:00 | weight_standard | 194.23 | lb | + + + +---------+ | 2023-06-10 00:00 | BMI | 33.3 | kg/m2 | + + + +---------+ | 2023-06-10 00:00 | BP_diastolic | 74 | mmHg | + + + +---------+ | 2023-06-10 00:00 | BP_systolic | 117 | mmHg | + + + +---------+ | 2023-06-10 00:00 | heart_rate | 60 | /min | + + + +---------+ | 2023-06-10 00:00 | height_metric | 162.56 | cm | + + + +---------+ | 2023-06-10 00:00 | height_standard | 64 | in | + + + +---------+ | 2023-06-10 00:00 | o2_saturation | 96 | % | + + + +---------+ | 2023-06-10 00:00 | respiration_rate | 17 | /min | + + + +---------+ | 2023-06-10 00:00 | temperature_metric | 36.83 | C | | | | | | + + + +---------+ | 2023-06-10 00:00 | | 98.3 | F | | | temperature_standar | | | | | d | | | + + + +---------+ | 2023-06-10 00:00 | weight_metric | 88.08 | kg | + + + +---------+ | 2023-06-10 00:00 | weight_standard | 194.18 | lb | + + + +---------+ | 2023-06-10 00:00 | weight_standard | 194.19 | lb | + + + +---------+"
[~2023-06-12 09:15] MED LIST changes: +COLCHICINE0.6 M1 PO; +ESTRING1 EACH VAGINAL
--- OUTSIDE RECORDS SUMMARY | 2023-06-12 09:19 | XMS ---
PreManage Notification: MADISON ANDRES Security Airline Counter Agent Events No recent Security Events currently on file CRITERIA MET - [facility] - 2 Visits in 30 Days CARE PROVIDERS JENNY Powell MD,ILDA Flight Crew Scheduler/Accounts Payable Specialist Current PHONE: [phone] LULI CORNELIUS [facility] 07/20/2019-Current PHONE: [phone] Alfonzo has no Care Guidelines for this patient. EShira VISIT COUNT (12 MO.) [address] [place] [address] TOTAL 3 NOTE: Visits indicate total known visits. ED/UCC VISIT TRACKING (12 MO.) 06/12/2023 09:16 [facility] TYPE: Emergency COMPLAINT: - BLACK STOOL 06/10/2023 08:15 [facility] [place] TYPE: Emergency COMPLAINT: - HEAVY BEATING HEART, CHEST PAIN DIAGNOSES: - Chest pain, unspecified - Essential (primary) hypertension - intermediate (current) use of anticoagulants - long term acute care registered nurse (current) use of aspirin - Nicotine dependence, unspecified, uncomplicated - Other mcfp (current) drug therapy - Paroxysmal atrial fibrillation - Unspecified asthma, uncomplicated 04/25/2023 21:[address] [facility] [place] TYPE: Emergency COMPLAINT: - LT HAND INJURY DIAGNOSES: - Allergy status to sulfonamides - Essential (primary) hypertension - Fall on same level from slipping, tripping and stumbling with subsequent striking against unspecified object, initial encounter - Nicotine dependence, unspecified, uncomplicated - Other mcfp (current) drug therapy - Pain in left wrist - Pure hypercholesterolemia, unspecified - Unspecified asthma, uncomplicated - Unspecified sprain of left wrist, initial encounter INPATIENT VISIT TRACKING (12 MO.) No inpatient visits to display in this time frame [email or web address]
[2023-06-12 11:35] VITALS: BP 109/59
== END 2023-06-12 11:38 | disposition home or self-care (01) ==
LOC: ED 09:15
DX: R19.7 Diarrhea, unspecified (principal); R19.5 Other fecal abnormalities; I10 Essential (primary) hypertension; E78.00 Pure hypercholesterolemia, unspecified; J45.909 Unspecified asthma, uncomplicated; F17.200 Nicotine dependence, unspecified, uncomplicated; Z88.2 Allergy status to sulfonamides; Z79.899 Other long term (current) drug therapy
CPT/HCPCS: 36415; 80053; 85025; 99284

== ENCOUNTER 2023-08-01 18:01 | Emergency (ER) | payer MEDICARE, OTHER ==
[~2023-08-01] VITALS: Ht 162.6 cm; Wt 87.0 kg
--- OUTSIDE RECORDS SUMMARY | ~2023-08-01 | XMS | Continuity of Care Document ---
Demographics + + + | Address | [address] | | | [place] [address] | + + + | Preferred Language | Unknown | + + + | Marital Status | | + + + | Methodist Affiliation | Unknown | + + + | Race | White | + + + | Ethnic Group | Not or | + + + Author + + + | Author | [facility] | + + + | Organization | [facility] | + + + | Address | [address] | | | [place] [address] | + + + | Phone | | + + + Care Team Providers + + + + | Care Project Structural Engineer Name | Role | Phone | + + + + Unavailable | Unavailable | + + + + Allergies No information. Encounters No information. Functional Status No information. Immunizations No information. Medications No information. Problems + + + + | date | description | facility | + + + + | 2023-06-06 [...] | + + + + | 2023-06-10 08:15 | NICOTINE DEPENDENCE, | [facility] | | | UNSPECIFIED, UNCOMPLICATED | | + + + + | 2023-06-10 08:15 | Essential (primary) | [facility] | | | hypertension | | + + + + | 2023-06-10 08:15 | PAROXYSMAL ATRIAL | [facility] | | | FIBRILLATION | | + + + + | 2023-06-10 08:15 | UNSPECIFIED ASTHMA, | [facility] | | | UNCOMPLICATED | | + + + + | 2023-06-10 08:15 | CHEST PAIN, UNSPECIFIED | [facility] | + + + + | 2023-06-10 08:15 | SNF (CURRENT) USE OF | [facility] | | | ANTICOAGULANTS | | + + + + | 2023-06-10 08:15 | SNF (CURRENT) USE OF | [facility] | | | ASPIRIN | | + + + + | 2023-06-10 08:15 | OTHER SNF (CURRENT) | [facility] | | | DRUG THERAPY | | + + + + | 2023-06-12 09:16 | PURE HYPERCHOLESTEROLEMIA, | [facility] | | | UNSPECIFIED | | + + + + | 2023-06-12 09:16 | NICOTINE DEPENDENCE, | [facility] | | | UNSPECIFIED, UNCOMPLICATED | | + + + + | 2023-06-12 09:16 | Essential (primary) | [facility] | | | hypertension | | + + + + | 2023-06-12 09:16 | UNSPECIFIED ASTHMA, | [facility] | | | UNCOMPLICATED | | + + + + | 2023-06-12 09:16 | OTHER FECAL ABNORMALITIES | [facility] | + + + + | 2023-06-12 09:16 | DIARRHEA, UNSPECIFIED | [facility] | + + + + | 2023-06-12 09:16 | OTHER SNF (CURRENT) | [facility] | | | DRUG THERAPY | | + + + + | 2023-06-12 09:16 | ALLERGY STATUS TO | [facility] | | | SULFONAMIDES STATUS | | + + + + Procedures No information. Results/Labs No information. Social History +--------+ + + | date | description | facility | +--------+ + + Vital Signs No information."
[2023-08-01 18:40] LABS: HEMATOCRIT 39.5 % (35.0-50.0)
[2023-08-01 18:42] LABS: BASOPHILS 0.9 % (0-2); EOSINOPHILS 1.5 % (0-6); HEMOGLOBIN 12.9 g/dL (12.0-18.0); LYMPHOCYTES 30.7 % (24-44); MCH 30.2 (27-36); MCHC 32.7 g/dl (30-36); MCV 92.2 fl (81-99); MONOCYTES 8.5 % (0-12); NEUTROPHILS 58.4 % (39-80); PLATELET COUNT 339 K/uL (140-440); RBC 4.29 M/ul (4.3-5.7); RDW 13.5 (10.5-15.0)
[2023-08-01 18:48] LABS: INR 1.08 (0.80-1.30); PROTIME 13.6 Sec (11.2-14.2)
[2023-08-01 18:50] LABS: PARTIAL THROMBOPLASTIN TIME 29.8 Sec (22.9-41.3)
[2023-08-01 18:54] LABS: ALBUMIN 3.7 g/dL (3.4-5.0); ALBUMIN/GLOBULIN RATIO 0.93 (1.1-2.4); ANION GAP 10.7 (7-21); BILIRUBIN, TOTAL 0.6 ng/dL (0.2-1.0); BUN/CREATININE RATIO 16.45 (6.0-28.6); CALCIUM 9.4 mg/dL (8.5-10.1); CREATININE, SERUM 0.79 mg/dL (0.55-1.02); POTASSIUM 3.7 mmol/L (3.5-5.1); PROTEIN, TOTAL 7.7 g/dL (6.4-8.2)
[2023-08-01 19:18] LABS: ABO O; ANTIBODY SCREEN NEGATIVE; RH POSITIVE
[2023-08-01 19:35] VITALS: BP 115/64
== END 2023-08-01 19:35 | disposition home or self-care (01) ==
LOC: ED 18:01
PROVIDERS: Emergency Medicine
DX: K64.4 Residual hemorrhoidal skin tags (principal); K64.8 Other hemorrhoids; I11.0 Hypertensive heart disease with heart failure; I50.9 Heart failure, unspecified; E78.00 Pure hypercholesterolemia, unspecified; J45.909 Unspecified asthma, uncomplicated; I48.91 Unspecified atrial fibrillation; F17.200 Nicotine dependence, unspecified, uncomplicated; Z88.2 Allergy status to sulfonamides; Z79.899 Other long term (current) drug therapy
CPT/HCPCS: 36415; 80053; 85025; 85610; 85730; 86850; 86900; 86901; 99283

== ENCOUNTER 2023-08-29 07:09 | Day surgery (SDC) | payer MEDICARE, MEDICAID ==
[~2023-08-29] VITALS: Ht 162.6 cm; Wt 84.0 kg
[~2023-08-29 07:09] MED LIST changes: +BENZONATATE200 MG; +NEURONTIN300 MG PO; +PREMARIN0.625 MG PO; +ZITHROMAX250 MG PO
[2023-08-29 07:25] VITALS: BP 128/66
[2023-08-29] MEDS ORDERED: XARELTO20 MG PO (07:40)
--- NOTE | 2023-08-29 09:25 | NUR ---
08/29/23 0925 Edith Burgos 0911 PPT ARRIVED TO PACU SLEEPY BUT RESPONDS TO STIMULI. 98% ON 3L. 0915 PT ASLEEP AND IS PASSING GAS. 0922 PT SLEEPY, AT BEDSIDE DISCUSSING RESULTS WHILE PT AWAKE AND THEN SHE FELL RIGHT BACK TO SLEEP.
[2023-08-29 10:25] VITALS: BP 113/52
--- NOTE | 2023-08-29 10:34 | NUR ---
LE 1025 PATIENT BACK TO ROOM 7. VITAL SIGNS COMPLETE. PATIENT HAS NO DRAINAGE AT THIS TIME. PATIENT ALERT AND ORIENTED. BREATHING EQUAL AND UNLABORED. OXYGEN SATURATIONS BETWEEN 94-97% ON ROOM AIR. PATIENT DENIES PAIN AND BEING NAUSEATED. IVF INFUSING. CONTINOUS PULSE OX ON FOR MONITORING. CRACKERS AND WATER GIVEN. CALL LIGHT WITHIN REACH NO FUTHER NEEDS. NO QUESTIONS AT THIS TIME.
--- NOTE | 2023-08-29 11:21 | OR ---
[facility] [address] [place], [place] [address] Signed DATE OF OPERATION: 08/29/2023 SURGEON: Bonita Hemphill MD PREOPERATIVE DIAGNOSES: 1. History of polyps ([place], [place]). 2. Medical problems including chronic atrial fibrillation with anticoagulation, history of hepatitis B and hypertension. POSTOPERATIVE DIAGNOSES: 1. Diverticulosis of sigmoid colon. 2. Small polyp of sigmoid. PROCEDURE: Total colonoscopy to cecum with cold morcellation polypectomy x1. ANESTHESIA: Intravenous sedation; fentanyl 150 mcg and Versed 4 mg. INDICATION: This 68-year-old white woman is a patient of Dr. Mary Jo Gill. She is originally from [place], moved to [place], [place] and later moved back to [place]. She underwent colonoscopy in [place] several years ago in which she was said to have "a couple of polyps." She currently has episodic rectal bleeding and describes "bad hemorrhoids." She has no family history of colon cancer. She was hospitalized in May in the [facility] for atrial fibrillation and is now on Xarelto. She does have a distant history of hepatitis B and has had a hysterectomy and pilonidal cystectomy in the past. She is admitted at this time to undergo colonoscopy for surveillance. She understands the risk of surveillance as well as the rectal bleeding and understands the risk of bleeding, infection, and perforation related to colonoscopy. She has been off her Xarelto for more than two days. FINDINGS: She did have some hemorrhoidal disease to be sure, but it was not extensive. Diverticula were noted of the sigmoid that were shallow and narrow. There was one small polyp of the sigmoid, which was resected. Remaining colon was essentially normal. DESCRIPTION OF PROCEDURE: The patient was brought to the surgical endoscopy suite and placed in the lateral decubitus position, given intravenous sedation to the point of slurred speech and Electronically Signed By: BONITA HEMPHILL MD 08/29/23 1121 PATIENT NAME: MADISON ANDRES OPERATIVE REPORT DATE OF : 51 REPORT #: [id number] PHYSICIAN: BONITA HEMPHILL MD PCP: MARY JO GILL MD REPORT IS CONFIDENTIAL AND NOT TO BE RELEASED WITHOUT AUTHORIZATION [facility] [address] [place], [place] [address] Signed nystagmus. Digital rectal examination was normal. An Olympus video colonoscope was passed in the rectum and manipulated throughout the colon ultimately noting a polyp in the sigmoid. This was excised with cold morcellation technique. It was rather small. The scope was advanced further ultimately to the cecum. The ileocecal valve and appendiceal orifice were normal. The scope was withdrawn from that point and examination showed no sign of abnormality until the left colon and sigmoid where diverticula were once again noted. Retroflexed view of the rectum showed no sign of extensive hemorrhoidal disease actually. The scope was removed and the patient was taken to recovery room in good condition. CONCLUDING DIAGNOSES: 1. Diverticulosis. 2. Small polyp of sigmoid. 3. Minimal hemorrhoidal disease. PLAN: Recommend high-fiber diet or a fiber supplement such as Citrucel. Would recommend repeat colonoscopy in 5 years, sooner if clinically indicated. She will return to the ongoing care of Dr. Mary Jo Gill. Bonita Hemphill MD JM/MODL /[id number] cc: Dr. Mary Jo Gill Copies: ~ Electronically Signed By: BONITA HEMPHILL MD 08/29/23 1121 PATIENT NAME: MADISON ANDRES KARLA OPERATIVE REPORT DATE OF : 51 REPORT #: [id number] PHYSICIAN: BONITA HEMPHILL MD PCP: MARY JO GILL MD REPORT IS CONFIDENTIAL AND NOT TO BE RELEASED WITHOUT AUTHORIZATION
[2023-08-29 11:35] VITALS: BP 117/58
--- NOTE | 2023-08-29 11:54 | NUR ---
LE 1100 PATIENT ALERT AND ORIENTED. PATIENT BREATHING EQUAL AND UNLABORED. PATIENT AMBULATED AROUND. PATIENT STATES "I AM TIRED BUT I AM READY TO GO HOME." LE 1135 PATIENT HAS MET DISCHARGE CRITERIA. PATIENT DRESSED SELF AND TOLERATED IT WELL. PATIENT VITAL SIGNS COMPLETE. IV D/C'D WNL. PATIENT GIVEN EDUCATION. NO QUESITONS AT THIS TIME. PATIENT WHEELED OUT OF FACILITY TO [facility] TAKING HER HOME TO BE WITH ANOTHER FAMILIY. NO FUTHER NEEDS.
--- NOTE | 2023-09-03 14:46 | PATH ---
[facility] [address] [facility] [facility], [place] [address] Signed SPECIMEN(S): A SIGMOID POLYP SPECIMEN SOURCE: A. SIGMOID POLYP CLINICAL HISTORY: Colonoscopy with possible biopsy. Pre: History of polyps. Post: Diverticulosis and polyp x1. FINAL PATHOLOGIC DIAGNOSIS: Sigmoid polyp: - Hyperplastic polyp (one fragment). JVR:louis MICROSCOPIC EXAMINATION: Histologic sections of all submitted blocks are examined by light microscopy. These findings, together with the gross examination, support the pathologic diagnosis. GROSS DESCRIPTION: The specimen, labeled and designated "Ulises sigmoid polyp," is received in formalin and consists of one la, soft tissue fragment, 0.3 cm. Entirely submitted in (A1). VB (under the direct supervision of a pathologist) The Gross Description was prepared using a voice recognition system. The report was reviewed for accuracy; however, sound-alike word errors, addition and/or deletions may occur. If there is any question about this report, please contact Client Services. PERFORMING LABORATORY: Technical component was performed by [facility], [address] [place] [id number] (CLIA# [id number]). Professional interpretation was performed by [facility] - [facility], [address] [place] [id number] (CLIA#: [id number]). Diagnostician: Anthony Santizo MD Pathologist Electronically Signed 09/03/2023 Copies: PATIENT NAME: ANDRES,MADSION KARLA PATHOLOGY DATE OF : 51 REPORT #: [id number] PHYSICIAN: ROSEANNE PATHOLOGY PCP: NILSA GILL MD REPORT IS CONFIDENTIAL AND NOT TO BE RELEASED WITHOUT AUTHORIZATION [address] [address] Signed ~ PATIENT NAME: MADISON ANDRES KARLA PATHOLOGY DATE OF : 51 REPORT #: [id number] PHYSICIAN: ROSEANNE PATHOLOGY PCP: NILSA GILL MD REPORT IS CONFIDENTIAL AND NOT TO BE RELEASED WITHOUT AUTHORIZATION
== END 2023-08-29 11:35 | disposition home or self-care (01) ==
LOC: DS 07:09 → OPS 07:09 → DS 09:00 → OPS 09:00 → DS 11:40
PROVIDERS: ATTEND Surgery
PROC: 0DBN8ZZ Excision of Sigmoid Colon, Via Natural or Artificial Opening Endoscopic (ICD-10-PCS; principal; 2023-08-29 08:15)
DX: Z12.11 Encounter for screening for malignant neoplasm of colon (principal); Z86.010 Personal history of colon polyps; I48.20 Chronic atrial fibrillation, unspecified; Z79.01 Long term (current) use of anticoagulants; K57.30 Diverticulosis of large intestine without perforation or abscess without bleeding; Z87.891 Personal history of nicotine dependence; Z86.19 Personal history of other infectious and parasitic diseases; Z88.2 Allergy status to sulfonamides; K63.5 Polyp of colon
CPT/HCPCS: 99153; G0500; J2250; J3010; J7121

== ENCOUNTER 2025-05-17 06:57 | Inpatient (IN) | payer MEDICARE, OTHER ==
[2025-05-04 10:52] VITALS: BP 119/64
[~2025-05-17] VITALS: Ht 162.6 cm; Wt 86.0 kg
[2025-05-17] VITALS (9 sets, daily range): BP systolic 106–143; BP diastolic 46–91
[~2025-05-17 06:57] MED LIST changes: +ELDERBERRY350 MG PO; +LACTATED RINGER'S 1,000 ML IV SCH; +METRONIDAZOLE45 GM TOP; -OMEPRAZOLE20 M1 PO; +OMEPRAZOLE20 MG PO; +TRIAMCINOLONE A15 G1 TOP
[2025-05-17] MEDS ORDERED: PANTOPRAZOLE SODIUM 40 MG TABEC PO SCH (07:00)
[2025-05-17] MEDS ORDERED: IBLOOD GLUCOSE TEST STRIP 1 EA TEST VI PRN (07:00)
[2025-05-17] MEDS ORDERED: OXYCODONE HCL 5 MG TAB PO SCH (07:00)
[2025-05-17] MEDS ORDERED: GABAPENTIN 600 MG TAB PO SCH (07:00)
[2025-05-17] MEDS ORDERED: TRANEXAMIC ACID IN NACL,ISO-OS 1,000 MG/100 ML PIGGYBACK IV SCH ×2 (07:00→11:00)
[2025-05-17] MEDS ORDERED: INTRA-ARTICULAR ANALGESIC INJECTION XX SCH (07:00)
[2025-05-17] MEDS ORDERED: CEFAZOLIN SODIUM 2 GM/20 ML SYR IV SCH ×2 (07:00→15:00)
[2025-05-17] MEDS ORDERED: LIDOCAINE HCL 1% 5 ML SDV INJ ONE (07:00)
--- NOTE | 2025-05-17 07:15 | NUR ---
PT NOT AVAILABLE FOR VISIT. PROVIDED PRAYER.
[2025-05-17] MEDS ORDERED: fentaNYL citrate 100 MCG/2 ML VIAL ONE (07:22)
[2025-05-17] MEDS ORDERED: MIDAZOLAM HCL 2 MG/2 ML VIAL ONE (07:23)
[2025-05-17] MEDS ORDERED: BUPIVACAINE HCL 0.5% 30 ML VIAL ONE (07:56)
[2025-05-17] MEDS ORDERED: SODIUM CHLORIDE 0.9% 100 ML IV ONE (08:00)
[2025-05-17] MEDS ORDERED: LIDOCAINE HCL 2% 5 ML SDV ONE (08:02)
[2025-05-17] MEDS ORDERED: PHENYLEPHRINE HCL 10 MG/ML VIAL ONE (08:21)
[2025-05-17] MEDS ORDERED: OXYCODONE HCL 5 MG TAB PO PRN (09:30)
[2025-05-17] MEDS ORDERED: KETOROLAC TROMETHAMINE 15 MG/ML VIAL IV PRN (09:30)
[2025-05-17] MEDS ORDERED: CEFUROXIME250 MG PO (09:33)
[2025-05-17] MEDS ORDERED: GABAPENTIN300 MG PO (09:37)
[2025-05-17] MEDS ORDERED: SENNA LAX8.6 MG PO (09:37)
[2025-05-17] MEDS ORDERED: OXYCODONE HCL5 M1 PO (09:50)
--- NOTE | 2025-05-17 10:00 | NUR ---
05/17/25 1000 Prema Nolasco 0931-PT ARRIVES TO PACU, VIA STRETCHER, RESTING SEMI FOWLERS, PT DROWSY BUT ABLE TO ANSWERE QUESTIONS. PT DENIES PAIN OR NAUSEA, VSS ON RA. 0940-HOB RAISED PER PT REQUEST, PT SITTING UP IN BED SIPPING ON WATER. 0950-REFRIGERATOR MOVER AT BEDSIDE FOR POST OP RT HIP X-RAY.
--- NOTE | 2025-05-17 10:05 | NUR ---
PT ARRIVES TO DS DEPT FROM PACU VIA STRETCHER. PT IS A&O AND ASKING APPROPRIATE QUESTIONS AT THIS TIME. SPINAL IS AT HIP LEVEL, AND PT UNABLE TO WIGGLE TOES. WARM BLANKETS, SNACKS, AND ICE WATER PROVIDED. PT RESTING WITH EYES CLOSED, RESPIRATIONS EVEN AND UNLABORED. PT REPORTS NO FURTHER NEEDS OR QUESTIONS AT THIS TIME. CALL LIGHT WITHIN REACH. REPORT RECEIVED FROM MICHELLE DORANTES, NO FAMILY MEMBER PRESENT AT BEDSIDE AT THIS TIME.
--- NOTE | 2025-05-17 11:05 | NUR ---
IN PT ROOM FOR VS AND ASSESSMENT. NO ACUTE CHANGES FROM PREVIOUS ASSESSMENT. PT REMAINS UNABLE TO WIGGLE TOES AT THIS TIME. SON AT BEDSIDE. TXA INFUSING DIRECTED. CALL LIGHT WITHIN REACH, LUNCH ORDER PLACED. PT STATES NO FURTHER NEEDS OR QUESTIONS AT THIS TIME.
--- NOTE | 2025-05-17 11:34 | OR ---
[facility] [address] [place], [place] [address] Signed DATE OF OPERATION: 05/17/2025 SURGEON: Jaret Cox MD PREOPERATIVE DIAGNOSIS: Severe degenerative joint disease, right hip. POSTOPERATIVE DIAGNOSIS: Severe degenerative joint disease, right hip. PROCEDURE PERFORMED: Right total hip arthroplasty with Michael. LIQUEFACTION SUPERVISOR: Jeni Morgan PA-C. Jeni was present and critical for all portions of procedure. ANESTHESIA: Spinal. BLOOD LOSS: 200 mL. IMPLANTS: Emily Secur-Fit advanced size 6, 50 mm cup and a +2.5 head. BRIEF HISTORY: Dasia is a 70-year-old female with progressive worsening of osteoarthritis. She had undergone prior knee replacements and wished to proceed with the hip. Risks, benefits, and alternatives were discussed and she understands, wished to proceed. DESCRIPTION OF PROCEDURE: Once consent was obtained, she was taken to the operating room. After adequate anesthesia, she was placed on the operating room table. All downside pressure points were well padded and an axillary roll was placed. The right hip was then prepped and draped in a standard sterile fashion to the ribcage. Two Shantz pins for the Michael computer array were placed in the posterior aspect of the iliac crest 3 fingerbreadths posterior to the ASIS. The hip was approached through standard anterolateral incision, carried through skin and subcutaneous tissue. The IT band was divided longitudinally. The vastus lateralis was then divided from the tip of the trochanter along the anterior Electronically Signed By: JARET COX MD 05/17/25 1134 PATIENT NAME: DASIA ANDRES OPERATIVE REPORT DATE OF : 51 REPORT #: [id number] PHYSICIAN: JARET COX MD PCP: NILSA GILL MD REPORT IS CONFIDENTIAL AND NOT TO BE RELEASED WITHOUT AUTHORIZATION [facility] [address] [place], [place] [address] Signed margin of the femur distally. It was subperiosteal elevated around to the level of the lesser trochanter. The hip capsule was then split from the tip of the trochanter to the acetabular rim. It was then peeled off the femoral neck anteriorly. Once this was completed, the superior capsule was released from the saddle. The leg was then registered with the computer. The hip was then dislocated and the femoral neck cut made one fingerbreadth above the lesser trochanter. The femoral head was removed. Periacetabular soft tissue was removed. The acetabulum was then registered with the computer. The robot was brought in and the acetabulum was reamed to 40 degrees of abduction and 20 of anteversion. The cup was then impacted until it was seated well. Her bone quality was quite good and there was no need for screws. The acetabular liner was impacted until it was well seated and locked. Attention was then turned to the proximal femur. This was opened using the [employer] cutter, followed by the Charlieney awl. It was then sequentially reamed up to a 5-6. The femur was then broached to a 6 and this was felt to be quite well fitting. Initially a -2.5 head was placed, but the hip was far too loose with that. We then placed a +2.5, and soft tissue tension was excellent. She had great range of motion and excellent stability. The computer showed it to be 5 mm long. Physical exam showed her to be neutral. Once this was completed, the hip was dislocated and trial was removed. The final stem was impacted until it was well seated and stable. The +2.5 head was placed on it and impacted. The hip was again reduced, taken through range of motion and then found to be stable. The wound was copiously irrigated with one bottle of Surgiphor followed by a liter of normal saline. The capsule was then closed using #2 FiberWire. Periarticular soft tissues were injected with 100 mL ropivacaine and Toradol mixture. The vastus and IT band layers were closed independently using #2 Stratafix. Subcutaneous tissue with 0 Stratafix and the skin with 3-0 Stratafix. The wound was sealed with LiquiBand and Steri-Strips as were the two pin sites. All wounds were dressed with Acticoat-7 dressing. She was awakened, taken to the recovery room in satisfactory condition. All sponge, needle, and instrument counts were correct. Jaret Cox MD BA/MODL /[id number] Electronically Signed By: JARET COX MD 05/17/25 1134 PATIENT NAME: DASIA ANDRES OPERATIVE REPORT DATE OF : 51 REPORT #: [id number] PHYSICIAN: JARET COX MD PCP: NILSA GILL MD REPORT IS CONFIDENTIAL AND NOT TO BE RELEASED WITHOUT AUTHORIZATION [address] [address] Signed Copies: ~ Electronically Signed By: JARET COX MD 05/17/25 1134 PATIENT NAME: DASIA ANDRES KARLA OPERATIVE REPORT DATE OF : 51 REPORT #: [id number] PHYSICIAN: JARET COX MD PCP: NILSA GILL MD REPORT IS CONFIDENTIAL AND NOT TO BE RELEASED WITHOUT AUTHORIZATION
--- NOTE | 2025-05-17 13:05 | NUR ---
IN PT ROOM FOR VS AND ASSESSMENT. PT ABLE TO SLIGHTLY LIFT LFT LEG, UNABLE TO WIGGLE TOES. PT ABLE TO SENSE PRESSURE TO LLE FEET. FOR RLE, SPINAL AT MID THIGH LEVEL, PT UNABLE TO MOVE RLE AT ALL. PT STATES NO URGE TO URINE VOID AT THIS TIME. ICE WATER REFILLED. PT STATES SHE IS COMFORTABLE AT THIS TIME AND NO FURTHER NEEDS OR QUESTIONS, SON AT BEDSIDE. PT TOLERATED LUNCH WITHOUT DIFFICULTY OR ONSET OF NAUSEA. CALL LIGHT WITHIN REACH.
--- NOTE | 2025-05-17 14:25 | NUR ---
IN PT ROOM FOR VS AND ASSESSMENT. NO ACUTE CHANGES FROM SURGICAL DRESSING ASSESSMENT. SENSATION INTACT FOR BLE, PT UNABLE TO LIFT RLE OFF OF BED, BUT ABLE TO WIGGLE TOES. CALL LIGHT WITHIN REACH. PT SON AT BEDSIDE. PT REPORTS NO FURTHER NEEDS OR QUESTIONS AT THIS TIME.
[2025-05-17] MEDS ORDERED: GABAPENTIN 300 MG CAP PO SCH (15:00)
[2025-05-17] MEDS ORDERED: ACETAMINOPHEN 500 MG TAB PO SCH (15:00)
--- NOTE | 2025-05-17 15:09 | NUR ---
IN PT ROOM FOR SPIN INSTRUCTOR OF TYLENOL, GABAPENTIN, AND ANCEF (SEE EMAR). PT WATCHING TV AT THIS TIME. PT STATES SHE "CAN FEEL HER LEG STARTING TO WAKE UP A LITTLE MORE". PT STATES PAIN REMAINS TOLERABLE AT THIS TIME. SPINAL RESOLVED. PHYSICAL THERAPY WOULD LIKE TO WORK W/PT, PT UPDATED ON PLAN OF CARE AND AGREEABLE AT THIS TIME.
--- NOTE | 2025-05-17 15:20 | NUR ---
[facility]/PHYSICAL THERAPY IN ROOM WITH PT AT THIS TIME.
--- NOTE | 2025-05-17 15:25 | NUR ---
PT SITTING AT EDGE OF BED ATTEMPTING TO WORK W/PHYSICAL THERAPY. PT REPORTS NAUSEA, EMESIS BAG PROVIDED BY KE PHYSICAL THERAPIST. PT EPISODE OF EMESIS X3, PT STATES SHE FEELS SLIGHTLY BETTER AFTER THROWING UP. PT LAYING BACK IN BED AT THIS TIME. TIMMY TAYLOR CALLED AND UPDATED, VO RECEIVED W/READ BACK FOR 10 MG OF ORAL COMPAZINE. PT RESTING W/SON AND ADDITIONAL GUEST IN ROOM. CALL LIGHT WITHIN REACH. PT STATES NO FURTHER NEEDS OR QUESTIONS AT THIS TIME.
[2025-05-17] MEDS ORDERED: PROCHLORPERAZINE MALEATE 10 MG TAB PO ONE (15:45)
--- NOTE | 2025-05-17 16:20 | NUR ---
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 PT REPORTS SHE FEELS MORE TIRED, BUT DOES NOT FEEL NAUSEOUS BEFORE. PT CLOSES EYES WITH EASE, RESPIRATIONS EVEN AND UNLABORED, NO SIGNS OF DISTRESS. PT STATES PAIN IS "MEDIUM", AND THAT NO NEED FOR PRN PAIN MED AT THIS TIME.
--- NOTE | 2025-05-17 16:30 | NUR ---
KE W/PHYS. THERAPY WORKING W/PT AT THIS TIME. PT REPORTS SLIGHT NAUSEA/DIZZINESS, NO EMESIS. PT STATES TOLERABLE AT THIS TIME.
--- NOTE | 2025-05-17 17:00 | NUR ---
PT BACK FROM PHYSICAL THERAPY AND PER KE, PHYS THERAPIST, PT DID NOT PASS. PT BACK TO BED AND PT STARTS VOMITING. 100 ML OF EMESIS. COOL RAG PROVIDED. TIMMY TAYLOR CALLED AND UPDATED ON PHYSICAL THERAPY AND PT VOMITING. VO RECIEVED TO CONTINUE ALL HOME MEDS, DC ASPIRIN 325 FOR PT HOME MED OF XARELTO 20 MG, AND TO GIVE IV 8MG OF ZOFRAN NOW. VERBAL READ BACK. CAITLIN FRANCISCO IN ROOM WELL AND REQUESTS ORTHOSTATICS, WNL.
--- NOTE | 2025-05-17 18:00 | NUR ---
PT TRANSFERRED TO MS RM 112 VIA STRETCHER. PT USES FWW TO STAND AND MOVE TO BED. PT REPORTS NAUSEA/DIZZINESS AT PERIODS DURING THIS, GAIT REMAINS STABLE W/X2 RN STANDBY ASSIST. VS TAKEN, CALL LIGHT WITHIN REACH, BED IN LOWEST POSITION, CPOX IN PLACE. FOOT PUMPS, CRYO CUFF, HEEL PROTECTORS IN PLACE. REPORT GIVEN AND SURGICAL DRESSING VISUALIZED W/AMANDA DORANTES. PT AND RN REPORT NO FURTHER NEEDS AT THIS TIME. PHONE #'S FOR X2 PEOPLE OF CONTACT FOR PT PROVIDED TO RN.
--- NOTE | 2025-05-17 18:13 | NUR ---
PT ARRIVES TO MED-SURG AT 1748 VIA GURNEY, AWAKE AND ALERT ON RA. PT TRANSFERS TO BED WITH FWW AND 1PA, TOLERATES THIS WELL. SPO2 94% ON CPOX. TEDS IN PLACE TO BLE, HEEL ELEVATED OFF BED, FOOT SCDS IN PLACE. REPORTS PAIN TOLERABLE AT THIS TIME. DENIES NAUSEA. CRYOCUFF OVER RIGHT HIP INCISIONS. BELONGINGS IN ROOM, CELL PHONE, FITTING ROOM SUPERVISOR, IS, SAH GREEN BAG, WITH SHOES, PANTS, SHIRT, VEST, BRA AND UNDERWEAR. GLASS ON PT. FULL UPPER DENTURE AND LOWER PARTIAL DENTURES IN. PT IS A&O X4. SL IN RIGHT HAND PATENT. RIGHT HIP DRESSING INTACT. SCANT AMOUNT OF OLD SANGUENIOUS DRAINAGE NOTED. VERBAL REPORT RECEIVED FROM JOSE E DELGADILLO. PT ORIENTED TO ROOM, BED AND CALL LIGHT.
[2025-05-17] MEDS ORDERED: ALBUTEROL SULFATE 0.083% 3 ML VIAL INH PRN (18:45)
--- NOTE | 2025-05-17 19:17 | NUR ---
OXYCODONE RECEIVED FOR 05/20 RIGHT HIP PAIN, SEE EMAR.
--- NOTE | 2025-05-17 19:27 | NUR ---
REPORT RECEIVED FROM DAY SHIFT RN. PT LYING IN BED ALERT AND ORIENTED. DENIES NEEDS. WHITE BOARD UPDATED. CALL LIGHT IN REACH.
--- NOTE | 2025-05-17 20:05 | NUR ---
VS OBTAINED. HR 50'S. NOTIFIED. NEW TELEPHONE ORDERS RECEIVED VERIFIED WITH READBACK METHOD TO HOLD CARVEDILOL. PRN FOR N/V ORDERS ALSO RECEIVED.
--- NOTE | 2025-05-17 20:14 | NUR ---
EVENING ASSESSMENT COMPLETE. SCHEDULED MEDS ADMIN PER EMAR. PT REPORTS RIGHT HIP PAIN 05/20. SCHEDULED MEDS GIVEN. RIGHT HIP DRESSING INTACT WITH SCANT AMOUNT OLD DRAINAGE. SCD'S/TEDS/CRYO IN PLACE. CMS INTACT. PT DENIES QUESTIONS OR CONCERNS. CALL LIGHT IN REACH. BED ALARM FOR SAFETY.
[2025-05-17] MEDS ORDERED: SENNOSIDES 1 TAB PO SCH (21:00)
[2025-05-17] MEDS ORDERED: ASPIRIN 325 MG TAB PO SCH (21:00)
[2025-05-17] MEDS ORDERED: ATORVASTATIN 40 MG TAB PO SCH (21:00)
--- NOTE | 2025-05-17 22:49 | NUR ---
PT RESTING IN BED WITH EYES CLOSED. RESPIRATIONS EVEN. CALL LIGHT IN REACH.
--- NOTE | 2025-05-17 23:43 | NUR ---
IV ABX ADMIN PER EMAR. PT UP TO BSC WITH 1PA AND FWW TO VOID. GAIT WEAK. BACK TO BED, BRANDO WELL. DENIES NAUSEA. REPORTS RIGHT HIP PAIN 06/20. PRN FOR PAIN ADMIN PER EMAR. SCD/TEDS/HP IN PLACE. FRESH ICE TO CRYO AND PLACED ON RIGHT HIP. NO FURTHER NEEDS. CALL LIGHT IN REACH.
[2025-05-18] VITALS (13 sets, daily range): BP systolic 90–117; BP diastolic 43–61
--- NOTE | 2025-05-18 01:28 | NUR ---
PT RESTING IN BED WITH EYES CLOSED. SpO2 95% ON 1L/NC. HR 50'S. CALL LIGHT IN REACH.
--- NOTE | 2025-05-18 02:56 | NUR ---
CALL LIGHT ANSWERED. PT UP TO BSC WITH FWW AND 1PA TO VOID. BACK TO BED, BRANDO WELL. PT DENIES NAUSEA. PT REPORTS RIGHT THIGH PAIN 06/20. PRN FOR PAIN ADMIN PER EMAR. CRYO TO RIGHT HIP. SCD'S/TEDS/HP IN PLACE. NO FURTHER NEEDS. CALL LIGHT IN REACH.
--- NOTE | 2025-05-18 06:13 | NUR ---
PT RESTING WITH EYES CLOSED. AWAKENS EASILY. VS AND I&O OBTAINED. PT REPORTS RIGHT LEG PAIN TOLERABLE AT THIS TIME. FRESH ICE IN CRYO CUFF. NO FURTHER NEEDS. CALL LIGHT IN REACH.
--- NOTE | 2025-05-18 07:05 | NUR ---
VERBAL REPORT RECEIVED FROM JOSE E LOPEZ. PT REST IN BED, AWAKE, CALL LIGHT IN REACH, NO REQUESTS AT THIS TIME.
[2025-05-18] MEDS ORDERED: NITROSTAT0.4 MG SL (07:30)
--- NOTE | 2025-05-18 07:41 | NUR ---
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 ANTICIPATES DC IN 1-2 DAYS
--- NOTE | 2025-05-18 08:12 | NUR ---
PT UP TO BSC WITH 1PA AND FWW. VOIDS 50 MLS OF YELLOW URINE. PT TO RECLINER WITH FWW AND SBA. PT REPORTS, "QUEASY." REMAINS A, "LITTLE NAUSOUS" AFTER SITTING IN RECLINER. REPORTS PAIN TOLERABLE AT THIS TIME. VS REPEATED.
--- NOTE | 2025-05-18 08:17 | NUR ---
IS PROVIDED TO PT, EDUCATION PROVIDED, PT RETURN DEMONSTRATES USE, VERBALIZES UNDERSTANDING. USE ENCOURAGED.
--- NOTE | 2025-05-18 08:20 | NUR ---
SPO2 INCREASES TO 95% ON ROOM AIR AFTER IS USE.
--- NOTE | 2025-05-18 08:37 | NUR ---
AFTER STARTING BREAKFAST PT HAS ONE EPISODE OF EMESIS OF 200 MLS. NAUSEA RESOLVES ENOUGH THAT PT CONTINUES TO EAT. ZOFRAN RECEIVED.
[2025-05-18] MEDS ORDERED: SPIRONOLACTONE 25 MG TAB PO SCH (09:00)
[2025-05-18] MEDS ORDERED: PANTOPRAZOLE SODIUM 40 MG TABEC PO SCH (09:00)
[2025-05-18] MEDS ORDERED: ATORVASTATIN 40 MG TAB PO SCH (09:00)
--- NOTE | 2025-05-18 09:11 | NUR ---
HOURLY ROUNDING. PATIENT IS SITTING IN RECLIER CHAIR, REPORTS FEELING BETTER. AM CARE HAS BEEN COMPLETED AND TIDY PATIENT ROOM. NO REQUEST FROM PATIENT AT THIS TIME. CALL LIGHT HAS BEEN PLACED WITHIN REACH AND BOARD HAS BEEN UPDATED
--- NOTE | 2025-05-18 09:24 | NUR ---
MED REC COMPLETE
--- NOTE | 2025-05-18 11:03 | NUR ---
DR. WARNER NOTIFIED VIA PHONE OF PT'S PERSISTENT NAUSEA WITH MOVEMENT, EMESIS X3 THIS AM, LOW SBP AND LOW URINE OUTPUT. NEW ORDERS RECEIVED.
[2025-05-18] MEDS ORDERED: PROCHLORPERAZINE MALEATE 10 MG TAB PO PRN (11:15)
[2025-05-18] MEDS ORDERED: SODIUM CHLORIDE 0.9% 1,000 ML IV ONE (11:15)
[2025-05-18 11:27] LABS: BASOPHILS 0.2 % (0.1-1.2); EOSINOPHILS 0.4 % (0.7-5.8); LYMPHOCYTES 9.8 % (19.3-51.7); MCH 30.5 PG (25.6-32.2); MCHC 32.1 g/dL (32.2-35.5); MCV 95.0 fL (79.4-94.8); MONOCYTES 9.8 % (4.7-12.5); NEUTROPHILS 79.5 % (34.0-71.1); RBC 3.97 M/uL (3.93-5.22)
--- NOTE | 2025-05-18 11:27 | NUR ---
SCOPOLAMINE PATCH APPLIED BEHIND LEFT EAR, EDUCATION ON MEDICATION RECEIVED. NS BOLUS STARTED.
[2025-05-18 11:42] LABS: ALT (SGPT) 32.0 U/L (14-59); AST (SGOT) 40.0 U/L (15-37); GLOMERULAR FILTRATION RATE,EST 61.0 mL/min (>60); PROTEIN, TOTAL 6.9 g/dL (6.4-8.2); UREA NITROGEN 11.0 mg/dL (7-18)
[2025-05-18] MEDS ORDERED: SCOPOLAMINE 1 MG/3 DAYS PATCH 1 EACH TDSY TD SCH (12:00)
--- NOTE | 2025-05-18 12:05 | NUR ---
DR. WARNER NOTIFIED VIA PHONE OF CBC AND CMP RESULTS.
--- NOTE | 2025-05-18 12:45 | NUR ---
NS BOLUS RUNNING AT 500 ML/H, VTBI 395 ML. PT TOLERATING FLUIDS WITHOUT COMPLICATION. LUNG SOUNDS CLEAR. SP02 94% RA. PT DENIES ANY SOB. PT HAS FINISHED HER LUNCH. SHE IS CURRENTLY IN THE CHAIR, INTERMITTENTLY RESTING WITH EYES CLOSED. PT IS REMINDED TO CONTINUE TO USE IS. PT DENIES ANY CONCERNS OR NEEDS AT THIS TIME. CALL LIGHT WITHIN REACH.
--- NOTE | 2025-05-18 13:05 | NUR ---
HOURLY ROUNDING. PATIENT IS CURRENTLY SLEEPING IN RECLINER CHAIR, NO REQUEST AT THIS TIME FROM PATIENT. CALL LIGHT HAS BEENPLACED WITHIN REACH
--- NOTE | 2025-05-18 13:40 | NUR ---
NS BOLUS COMPLETE. PT DENIES SOB OR ANY OTHER CONCERNS. LUNG SOUNDS ARE CLEAR. SPO2 92% RA. PT CONTINUES TO REST IN CHAIR WITH EYES CLOSED. CALL LIGHT WITHIN REACH.
--- NOTE | 2025-05-18 14:17 | NUR ---
ALERT AND ORIENTED IN RECLINER. LIVES IN MOBILE HOME WITH 4 STEPS TO GET INSIDE. STATES SHE HAS A WALKER, CANE AND HER SON HAS BENCHES IN HIS SHOWER. STATES HER PLAN IS TO GO TO HIS HOUSE WHEN SHE IS DISCHARGED FROM HOSPITAL. STATES SHE DRIVES AT [place] AND HAS NO FINANCIAL CONCERNS. DC PLAN IS TO GO HOME WITH SON.
--- NOTE | 2025-05-18 14:26 | NUR ---
CMS TO BLE INTACT, TEDS IN PLACE TO BLE, BLE ELEVATED IN RECLINER. RIGHT HIP DRESSINGS REMAIN C/D/I, NO NEW DRAINAGE. PT UP TO BSC WITH SBA, PT VOIDS 700 MLS. PT BACK TO RECLINER. CRYOCUFF TO RIGHT HIP, FRESH ICE IN CRYCUFF. CALL LIGHT AND BELONGINGS IN REACH. NO REQUESTS AT THIS TIME.
--- NOTE | 2025-05-18 18:08 | NUR ---
HOURLY ROUNDING.PATIENT DIDNT EAT MUCH OF HER DINNER. SHE REPORTS HER SON GOING TO GET HER SOMTHING TO EAT. NO REQUEST FROM PATIENT. PATIENT APPEARS TIRED, AND SAYS SHE GETS SICK WHEN SHE MOVES AROUND. NURSE HAS BEEN NOTIFIED. NO REQUEST FROM PATIENT AT THIS TIME. CALL LIGHT PLACED WITHIN REACH
--- NOTE | 2025-05-18 19:13 | NUR ---
REPORT RECEIVED FROM DAY SHIFT RN. PT SITTING IN RECLINER ALERT AND ORIENTED. FAMILY IN ROOM. PT DENIES NEEDS. WHITE BOARD UPDATED. CALL LIGHT IN REACH.
--- NOTE | 2025-05-18 19:30 | NUR ---
PATIENT CALLED TO USE THE BATHROOM. PATIENT ASSISTED 1 PA USING WALKER FROM CHAIR TO BEDSIDE COMMODE. PATIENT URINATED 700ML YELLOW URINE. PATIENT IS BACK IN BED NOW. SCDS, CPOX AND CRYO CUFF ARE IN PLACED. SIDE TABE WITH PERSONAL BELONGINGS AND CALL LIGHT WITHIN REACH. NO FURTHER NEEDS AT THIS TIME.
--- NOTE | 2025-05-18 20:59 | NUR ---
EVENING ASSESSMENT COMPLETE. SCHEDULED MEDS ADMIN PER EMAR. PT DENIES PAIN OR NAUSEA. RIGHT HIP DRESSING INTACT WITH SCANT AMOUNT OLD DRAINAGE. CMS INTACT. SCD'S/HP/TEDS/CRYO IN PLACE. VS AND I&O OBTAINED. PT DENIES QUESTIONS OR CONCERNS. CALL LIGHT IN REACH.
--- NOTE | 2025-05-18 23:21 | NUR ---
PT RESTING IN BED WITH EYES CLOSED. RESPIRATIONS EVEN. CALL LIGHT IN REACH.
[2025-05-19] VITALS (8 sets, daily range): BP systolic 99–118; BP diastolic 44–51
--- NOTE | 2025-05-19 01:04 | NUR ---
PT RESTING IN BED WITH EYES CLOSED. CPOX IN PLACE. SpO2 LOW 90'S. HR 70'S. CALL LIGHT IN REACH.
--- NOTE | 2025-05-19 03:07 | NUR ---
PT SUPINE IN BED. EYES CLOSED. SpO2 LOW 90'S ON RA. HR 70'S. RESPIRATIONS EVEN. CALL LIGHT IN REACH.
--- NOTE | 2025-05-19 05:38 | NUR ---
PT RESTING WITH EYES CLOSED. AWAKENS EASILY. UP TO BSC WITH 1PA AND FWW TO VOID. PT REPORTS SLIGHT LIGHTHEADEDNESS UPON SITTING. DENIES NAUSEA. BACK TO BED, BRANDO WELL. VS AND I&O OBTAINED. ASSESSMENT UNCHANGED. FRESH ICE TO CRYO. SCD'S/TEDS/HP/CRYO IN PLACE. RIGHT HIP DRESSING WITH SCANT AMOUNT OLD DRAINAGE. PT DENIES FURTHER NEEDS. CALL LIGHT IN REACH.
--- NOTE | 2025-05-19 07:31 | NUR ---
RECEIVED REPORT FROM FAN ADLER. PATIENT RESTING IN BED WIHT EYES CLOSED, DID NOT OPEN EYES WHEN ENTERED ROOM. RESP EVEN/UNLABORED. CALL LIGHT WITHIN REACH, WILL ALLOW PATIENT TO REST AT THIS TIME.
--- NOTE | 2025-05-19 08:59 | NUR ---
PT CALLED C/O 08/20 PAIN TO (R) HIP, STARTS AT THE INCISION AND GOES ALL THE WAY TO TOES. CRYO HAS FRESH ICE IN IT, PRN PAIN MEDS GIVEN ALONG WITH SCHEDULED TYLENOL - SEE JAN. PT COMPLETED 100% OF BREAKFAST, DENIES NAUSEA AT THIS TIME. AT THIS TIME, WILL HOLD BP MEDS, CONTROL PAIN AND REASSESS VITALS TO DETERMINE BLOOD PRESSURE MEDS, PT AGREES. CALL LIGHT WITHIN REACH. FRESH ICE WATER PROVIDED, TRAY REMOVED. WILL RETURN SHORTLY TO ASSESS VITALS AND COMPLETE MEDS PASS.
--- NOTE | 2025-05-19 09:02 | NUR ---
HOURLY ROUNDING. PATIENT REPORTS BEING IN PAIN, NURSE HAS BEEN NOTIFIED AND ADMINSTERED PAIN MEDS. CYRO CUFF REPLACED THE ICE IN MACHINE. NO REQUEST FROM PATIENT AT THIS TIME. CALL LIGHT PLACED WITHIN REACH. BOARD HAS BEEN UPDATED
--- NOTE | 2025-05-19 09:54 | NUR ---
PT CURRENTLY UP IN BATHROOM, WORKING WITH PT. VS REVIEWED. MD NOTIFIED AND CLARIFIED BP MEDICATION ORDERS; PER MD HOLD BP MEDS FOR SBP<110, PT HAS BEEN HAVING SOFT PRESSURES AND DIZZINESS. ORDERS UPDATED TO REFLECT THIS MOVING FORWARD. HR IN 'S AND MD INFORMED. PT PAIN IS IMPROVING FROM 10/, CURRENLTY 6/ AND SHE IS WORKING WITH PT. DENIES NAUSEA THIS MORNING. ALL PT CARE NEEDS MET AT THIS TIME, GOING TO BE SITTING UP IN CHAIR WITH PT AND COMPLETING MORE EXERCISES.
--- NOTE | 2025-05-19 10:28 | NUR ---
PT SITTING UP IN CHAIR, JUST FINISHED WITH PT. NOW STARTING TO WORK WITH OT. PT REPORTS PAIN 3/10 AT THIS TIME, FEELING MUCH BETTER. NO BM THIS MORNING WHEN IN BATHROOM, PT REPORTS LAST BM SATURDAY. INFORMED PT WE WILL DISCUSS WITH MD WHEN HE MAKES HIS ROUNDS. PT INFORMED WE WILL BE HOLDING HER BP MEDS, PT DENIES HER HEART RACING, BUT WILL NOTIFY US IF SHE FEELS ANY CHANGES DUE TO HOLDING MEDS. CALL LIGHT WITHIN REACH. DENIES ANY NEEDS AT THIS TIME.
--- NOTE | 2025-05-19 12:26 | NUR ---
PT SITTING UP IN CHAIR AT THIS TIME EATING. PAIN IS ABOUT 2/10 DULL ACHE AT THIS TIME. CRYO IN PLACE. FRESH ICE WATER PROVIDED. DENIES BM STILL TODAY, OFFERED SOME PRUNE JUICE BUT PT DECLINED AT THIS TIME. DENIES ANY OTHER NEEDS AT THIS TIME, CALL LIGHT WITHIN REACH. LEFT PT TO FINISH LUNCH AND WATCHING TV.
--- NOTE | 2025-05-19 13:05 | NUR ---
PT CURRENTLY WORKING WITH PT ON THE BICYCLE.
--- NOTE | 2025-05-19 14:20 | NUR ---
RECIEVED HAND OFF REPORT FROM JOSE E GILMORE.
--- NOTE | 2025-05-19 14:40 | NUR ---
VISITED DURING SPIRITUAL CARE ROUNDS. PT IN OVERALL GOOD SPIRITS; NO IMMEDIATE NEEDS. HEALTH EDUCATION DIRECTOR PROVIDED SUPPORTIVE PRESENCE, HOSPITALITY, PRAYER. PT EXPRESSED GRATITUDE, HOPE, ANNABELLE SOURCE OF STRENGTH.
--- NOTE | 2025-05-19 15:11 | NUR ---
PT AMBULATED TO BATHROOM, SBA, FWW, W/O DIFFICULTY. BACK IN RECLINER. FAMILY AT BEDSIDE. CALL LIGHT IN REACH.
--- NOTE | 2025-05-19 16:28 | NUR ---
PT SITTING IN RECLINER, VISITOR AT BEDSIDE. CALL LIGHT IN REACH.
--- NOTE | 2025-05-19 16:46 | NUR ---
PT WALKED A FULL LAP AROUND MED SURG, SBA WITH JOSE E BURTON. TOLERATED WELL. CYRO ICE FILLED, APPLIED TO R HIP. CALL LIGHT IN REACH
--- NOTE | 2025-05-19 16:55 | NUR ---
IN ROOM GIVEN MEDICATIONS. PAIN /, DENIES PAIN MEDICATION AT THIS TIME. STATES IS TOLERABLE. CALL LIGHT IN REACH.
--- NOTE | 2025-05-19 18:06 | NUR ---
HOURLY ROUNDING. PATIENT REPORTED HAVING PAIN, NURSE HAS BEEN NOTIFIED. PATIENT TRANSFERED FROM THE RECLINER CHAIR TO THE BATHROOM, THEN TRANSFERED FROM THE BATHROOM TO THE BED USING A FWW. NO REQUEST FROMPATIENT AT THIS TIME. CALL LIGHT PLACED WITHIN REACH
--- NOTE | 2025-05-19 18:12 | NUR ---
PAIN MEDICATION GIVEN FOR 7/10 R LEG PAIN. NO FURTHER NEEDS. CALL LIGHT IN REACH
--- NOTE | 2025-05-19 19:38 | NUR ---
REPORT RECEIVED FROM DAY SHIFT RN. PATIENT RESTING IN BED. RESPIRATIONS EVEN AND UNLABORED. CALL LIGHT IN REACH.
--- NOTE | 2025-05-19 21:44 | NUR ---
PATIENT RESTING IN BED. PATIENT UP TO BATHROOM USING 1P SBA AND SWW TO VOID. PATIENT BACK TO BED. BRANDO WELL. FRITZ HOSE, HEEL PROTECTORS AND SCDs IN PLACE. NEW ICE PLACED IN CRYO CUFF. CRYO CUFF IN PLACED ON RIGHT HIP. DRESSING C/D/I ON RIGHT HIP WITH MINIMAL SHADOWING. VS AND I&Os OBTAINED AND RECORDED. SCHEDULED MEDICATION ADMINISTERED. PATIENT DENIES FURTHER NEEDS AT THIS TIME. CALL LIGHT IN REACH.
--- NOTE | 2025-05-19 23:40 | NUR ---
CALL LIGHT ANSWERED. PT NEEDED TO USE BATHROOM. SWAGER OPERATOR 1PA WITH FWW TO BSC. PT VOIDED AND ASSISTED BACK TO BED. PT ICE WATER REFILLED. PT STATES NO FURTHER NEEDS AT THIS TIME. CALL LIGHT WITHIN REACH.
[2025-05-20] VITALS (8 sets, daily range): BP systolic 103–125; BP diastolic 43–80
--- NOTE | 2025-05-20 01:19 | NUR ---
PATIENT RESTING IN BED ON BACK WITH EYES CLOSED. RESPIRATIONS EVEN AND UNLABORED. CALL LIGHT IN REACH.
--- NOTE | 2025-05-20 04:10 | NUR ---
PATIENT RESTING IN BED ON BACK WITH EYES CLOSED. RESPIRATIONS EVEN AND UNLABORED. CALL LIGHT IN REACH.
--- NOTE | 2025-05-20 05:30 | NUR ---
CALL LIGHT ANSWERED. PATIENT UP USING 1P SBA AND FWW TO BATHROOM TO VOID. PATIENT BACK TO BED. FRESH ICE IN CRYO CUFF PLACED TO RIGHT HIP, WITH LINEN BARRIER IN PLACE. TEDHOSE IN PLACE. SCDs IN PLACE. VS AND I&Os OBTAINED AND RECORDED. R HIP DRESSING C/D/I. PATIENT HAS NO FURTHER NEEDS AT THIS TIME. CALL LIGHT IN REACH.
--- NOTE | 2025-05-20 05:51 | NUR ---
PRN PAIN MEDICATION ADMINISTERED FOR 5/10 R HIP PAIN PER PATIENT REQUEST. PATIENT HAS NO FURTHER NEEDS. CALL LIGHT IN REACH.
--- NOTE | 2025-05-20 07:15 | NUR ---
RECIEVED REPORT FROM JOSE E NARANJO. PT SITTING UP IN BED AWAKE, STATES NO CURRENT NEEDS. CALL LIGHT WITHIN REACH.
--- NOTE | 2025-05-20 07:45 | NUR ---
PT UP TO RESTROOM WITH SBA AND FWW. PT VOIDS, BACK TO BED. DRESSING TO R HIP WITH SMALL SPOT OF SHADOWING, EDGES INTACT. CRYO CUFF, FRITZ HOSE AND SCDs IN PLACE. PT REFUSING HEEL PROTECTORS AT THIS TIME. PT STATES NO CURRENT NEEDS. CALL LIGHT WITHIN REACH.
--- NOTE | 2025-05-20 07:53 | NUR ---
PATIENT IN BED AT THIS TIME. RUBBER MOLDER CHARTED HOURLY ROUNDS. PATIENT REFUSED TO GET INTO CHAIR FOR BREAKFAST, RUBBER MOLDER TOLD PATIENT WE WILL GET UP AFTER BREAKFAST. CALL LIGHT WITHIN REACH, NO FURTHER NEEDS AT THIS TIME.
--- NOTE | 2025-05-20 08:12 | NUR ---
PT SITTING UP IN BED EATING BREAKFAST, STATES PAIN IS 7/10 IN R HIP, PRN PAIN MEDICATION GIVEN PER PT REQUEST. PT STATES NO FURTHER NEEDS AT THIS TIME. CALL LIGHT WITHIN REACH. PT TAKES PO MEDICATION W/O DIFFICULTY.
--- NOTE | 2025-05-20 09:19 | NUR ---
PT AMBULATING HALLWAYS WITH PHYSICAL THERAPY.
--- NOTE | 2025-05-20 09:46 | NUR ---
PATIENT IN CHAIR AT THIS TIME. CARTON INSPECTOR CHARTED VITALS AND I&O'S. CARTON INSPECTOR CHANHEGE PATIENTS LINENS. CALL LIGHT WITHIN REACH, NO FURTHER NEED AT THIS TIME.
[2025-05-20] MEDS ORDERED: POLYETHYLENE GLYCOL 3350 1 PACKET PO SCH (10:45)
[2025-05-20] MEDS ORDERED: MAGNESIUM HYDROXIDE 30 ML UDC PO SCH (10:45)
--- NOTE | 2025-05-20 10:45 | NUR ---
THIS RN CALLS DR. WARNER REGARDING PT STATING SHE HAS NOT HAD A BM IN "MULTIPLE DAYS" AND IS REQUESTING MEDICATION. MD STATES TO ORDER MIRALAX 1 PACKET BID STARTING NOW WELL MILK OF MAGNESIA 30MG STARTING NOW. ORDERS ENTERED, REPEAT BACK PERFORMED.
--- NOTE | 2025-05-20 11:00 | NUR ---
PT UP TO CHAIR VISITING WITH FAMILY. PT STATES NO CURRENT NEEDS, CALL LIGHT WITHIN REACH.
--- NOTE | 2025-05-20 11:10 | NUR ---
INTO SEE PATIENT. PATIENT SITTING IN CHAIR AWAITING THERAPIES. STATES SHE IS A BIT FOGGY FROM PAIN MEDICINE BUT OVERALL DOING WELL. PATIENT WILL GO HOME WITH SON WHEN MEDICALLY CLEARED FOR DISCHARGE. NO FUTHER CM NEEDS AT THIS TIME.
--- NOTE | 2025-05-20 11:32 | NUR ---
PT AMBULATING HALLWAY WITH PHYSICAL THERAPY.
--- NOTE | 2025-05-20 12:54 | NUR ---
CHART FAXED TO [facility]. PATIENT REQUESTS [facility] IF PATIENT NEEDS SNF AT END OF STAY.
--- NOTE | 2025-05-20 13:26 | NUR ---
VISITED DURING SPIRITUAL CARE ROUNDS. PT APPEARED TO BE SLEEPING. DID NOT DISTURB. PROVIDED PRAYER.
--- NOTE | 2025-05-20 14:17 | NUR ---
PATIENT IN CHAIR AT THIS TIME. TOLL TESTBOARD WORKER CHARTED VITALS AND I&O'S. CALL LIGHT WITHIN REACH, NO FURTHER NEEDS AT THIS TIME.
--- NOTE | 2025-05-20 16:35 | NUR ---
NEW IV STARTED BY THIS RN IN PATIENTS RIGHT WRIST. PATIENT TOLERATED WELL. PATIENT WITHOUT FURTHER NEEDS AT THIS TIME. CALL LIGHT AND PERSONAL BELONGINGS ARE WITHIN REACH.
--- NOTE | 2025-05-20 16:55 | NUR ---
PATIENT IN BED AT THIS TIME. VOCATIONAL HORTICULTURE INSTRUCTOR CHARTED HOURLY ROUNDS. CALL LIGHT WITHIN REACH, NO FURTHER NEEDS AT THIS TIME.
--- NOTE | 2025-05-20 17:36 | NUR ---
PT UP TO RESTROOM WITH 1PA SBA FWW. PT TOLERATED WELL. PT BACK TO BED AND EATING DINNER. NO OTHER REQUESTS AT THIS TIME. CALL LIGHT WITHIN REACH.
--- NOTE | 2025-05-20 18:18 | NUR ---
PATIENT IN BED AT THIS TIME. DRAINAGE ENGINEER CHARTED VITALS AND I&O'S. PATIENT STATED THAT SHE WOULD LIKE BED BATH AFTER EDITH FAMILY LEAVES. DRAINAGE ENGINEER TOLD PATIENT TO CALL ONCE SHE IS READY FOR BED BATH. CALL LIGHT WITHIN REACH, NO FURTHER NEEDS AT THIS TIME.
--- NOTE | 2025-05-20 19:25 | NUR ---
shift report received from dayshift june charles. pt awake and resting in bed, on ra. rr even and unlabored, no distress noted. dressing to right hip wnl, intact with very scant old shadowing. cyrocuff in place along with gino hose and scd's, heel protectors also in place. pt denies needs or concerns, call light and personal belongins in reach. board updated.
--- NOTE | 2025-05-20 20:21 | NUR ---
CALL LIGHT ANSWERED. PT NEEDED TO USE BATHROOM. AUTOMOBILE INSPECTOR ASSISTED OUT PF BED AND SBA WITH FWW TO BATHROOM. PT VOIDED AND ASSISTED BACK TO BED. PT STATES NO FURTHER NEEDS AT THIS TIME. CALL LIGHT WITHIN REACH AND VISITORS IN ROOM.
--- NOTE | 2025-05-20 20:28 | NUR ---
rounded on pt, pt in bed awake and visiting with vistors in room. denies needs or concerns at this time, call light in reach.
--- NOTE | 2025-05-20 21:45 | NUR ---
ASSESSMENT COMPLETE, FIELD ARTILLERY OPERATIONS MAN IN ROOM AND COLLECTED VS, I&O'S, AND COMPLETED A BED BATH PER pt REQUEST. pt A/OX4, RATES PAIN TOLERABLE AND ON 3/10 SCALE. IV SITE WNL, FLUSHES EASILY AND SALINE LOCKED. NO NEW SHADOWING NOTED TO RIGHT HIP DRESSING OTHER THAN ALREADY NOTED SCANT RED/BROWN DRIED SHADOWING. CMS INTACT, pt DENIES NUMBNESS AND TINGLING. CYRO CUFF ICE REPLACED BY MARY RAMOS. FRITZ HOSE AND SCD'S IN PLACE BILTERALLY. pt TOOK SCHEDULED MEDS W/O ISSUE, FRESH ICE WATER PROVIDED. pt REPORTS MILD QUEASINESS AFTER EVENING CARES, INSTRUCTED TO CALL IF IT DOES NOT IMPROVE OR IF SHE WANTS PRN NAUSEA MEDICATION, pt VERBALIZES UNDERSTANDING. NO ADDITIONAL NEEDS OR CONCERNS, CALL LIGHT IN REACH ALONG WITH PERSONAL BELONGINGS.
--- NOTE | 2025-05-20 22:46 | NUR ---
rounded on pt following evening assessment to reassess queasiness, pt resting in bed with eyes closed and on ra. rr even and unlabored, no distress or outward s/sx of nausea or discomfort noted. pt left undisturbed and allowed to rest, call light in reach.
--- NOTE | 2025-05-21 00:17 | NUR ---
ROUNDED ON pt, pt RESTING IN BED WITH EYES CLOSED. ON RA, RR EVEN AND UNLABORED. NO DISTRESS NOTED. CALL LIGHT IN REACH, pt APPEARS COMFORTABLE AND RELAXED-WILL CONTINUE TO MONITOR.
--- NOTE | 2025-05-21 02:24 | NUR ---
assisted pt back from bathroom to bed, pt steady on feet, sba with fww, assistance provided with getting right leg back in bed, cyrocuff remains in place along with gino patrick and scd's-bilaterally and heel protectors. no acute changes, pain controlled at this time and fresh ice water provided. call light in reach.
--- NOTE | 2025-05-21 03:10 | NUR ---
plumbing warehouse helper heidy updated that pt still doesn't have iv acccess. janelle to discuss with a couple other nurses in the er who are also trained in us guided iv. pt resting quietly in bed, on ra. rr even and unlabored. rue remains elevated in bed with pillows. call light in reach.
--- NOTE | 2025-05-21 03:15 | NUR ---
pt CALLED AND C/O 03/20 PAIN. PRN PAIN MEDS ADMINISTERED. pt DENIES ANY OTHER NEEDS AT THIS TIME. CALL LIGHT WITHIN REACH.
--- NOTE | 2025-05-21 03:42 | NUR ---
pt resting in bed, on ra. rr even and unlabored. no distress noted. call light in reach.
--- NOTE | 2025-05-21 05:23 | NUR ---
rounded on pt, pt resting in bed with eyes closed. on ra, rr even and unlabored. no distress noted, call light in reach along with personal belongings.
[2025-05-21 05:33] VITALS: BP 100/42
--- NOTE | 2025-05-21 06:08 | NUR ---
rounded on pt, vs and i&o's collected. pt up sba with fww to void and back in bed, voided 400mls. fresh ice to cyrocuff, no additional needs or concerns, call light in reach.
[2025-05-21 06:51] VITALS: BP 100/42
--- NOTE | 2025-05-21 07:30 | NUR ---
RECEIVED REPORT FROM NIGHT RN. PT SITTING UP IN BED AT THIS TIME, REPORTS PAIN 4/10, OFFERED PAIN MEDS PRIOR TO PT WORKING WITH HER THIS MORNING. PT DOES C/O OF SOME NAUSEA, WHICH WILL PROVIDE MEDS FOR THIS MORNING. MAGNESIUM OXIDE ORDERED BID, PT STATES SHE ONLY TAKES ONCE DAILY - WILL ADJUST TO MATCH HER HOME REGIMEN. PHARMACY NOTIFIED THAT SHE TAKES IT AT NIGHT, SO ORDERED HOW SHE PREFERS. PT CARE NEEDS MET, CALL LIGHT WITHIN REACH.
[2025-05-21] MEDS ORDERED: OXYCODONE HCL5 M1 PO (08:12)
--- NOTE | 2025-05-21 08:24 | NUR ---
In with pt in response to call light for "sugar". Pt requested sugar for her cheerios. When I brought this to her, she then states that she's "not feeling very good this morning". When I asked her how she's not feeling good, she states she feels "a little queasy". Encouraged pt to take it slow with her breakfast, maybe eat a little bit of the dry toast and sip some gingerale (she chose lemon-[place] twist instead of gingerale), and advised her that I would notify her primary RN. RN Katy Paz notified. White board updated. Pt denies further needs at this time. Emesis bag provided. Encouraged her to use her call light if she continues to be nauseated or she vomits. Pt verbalized understanding.
--- NOTE | 2025-05-21 08:45 | NUR ---
PT SITTING UP IN BED, MEDS GIVEN - SEE JAN. PRN PAIN/NAUSEA MEDS GIVEN WELL FOR 4/10 PAIN THIS MORNING. BOWEL MEDS GIVEN, ACTICOAT IN PLACE, SMALL X2 SPOTS OF OLD DRAINAGE, NOTHING NEW. SCDS IN PLACE, BAGGAGE SCREENER CHANGED OVER ICE IN CRYO. PT HAD GOOD APPETITE FOR BREAKFAST. NO OTHER NEEDS AT THIS TIME, PT WOULD LIKE TO WORK WIHT PATIENT.
[2025-05-21] MEDS ORDERED: MAGNESIUM OXIDE 400 MG TABLET PO SCH ×2 (09:00→21:00)
[2025-05-21 09:04] VITALS: BP 106/47
--- NOTE | 2025-05-21 09:12 | NUR ---
REFILLED PATIENT'S CRYO. PATIENT BRUSHED HER TEETH AND WASHED HER FACE. NOW SHE IS WORKING WITH PHYSICAL THERAPY.
[2025-05-21 09:44] VITALS: BP 106/47
--- NOTE | 2025-05-21 10:10 | NUR ---
TALKED WITH PATIENT ABOUT [facility]. ORDERS READY. WAITING FOR BED AVAILABILITY. IMM LETTER COMPLETED.
--- NOTE | 2025-05-21 10:34 | NUR ---
JONY BRUSHED HER TEETH AND WASHED HER FACE AFTER BREAKFAST. BED LINENS ARE CHANGED. PATIENT IS UP IN HER CHAIR.
--- NOTE | 2025-05-21 14:04 | NUR ---
PT RESTING IN CHAIR WATCHING TV WITH RIGHT LEG ELEVATED WITH ICE APPLIED. PAIN MEDICATION PROVIDED IN ANTICIPATION OF DISCHARGE. PT DENIES FURTHER NEEDS, CALL LIGHT IN REACH.
[2025-05-21 14:08] VITALS: BP 118/67
--- NOTE | 2025-05-21 14:30 | NUR ---
PT SITTING UP IN CHAIR, CRYO MACHINE PACKED UP. ALL PT BELONGINGS READY TO GO. PT VERBALIZES DESIRE AND READINESS TO LEAVE AT THIS TIME. CALL LIGHT WITHIN REACH, INFORMED WE WILL BE IN ABOUT 2:50 AND TAKE HER TO FRONT ENTRANCE SO WE DO NOT MISS HER RIDE TO [facility]. PT VERBALIZED AND AGREES. ALL PT CARE NEEDS MET AT THIS TIME.
--- NOTE | 2025-05-21 16:33 | NUR ---
REPORT CALLED TO FLORENTIN AT [facility]. NO OTHER QUESTIONS/CONCERNS AFTER REPORT GIVEN.
== END 2025-05-21 14:50 | DRG 470 ==
LOC: MS 06:57 → DS 06:57 → MS 17:44 → DS 05-18 14:47 → MS 05-18 14:47
PROVIDERS: ADMIT Specialist; ATTEND Specialist
PROC: 0SR902Z Replacement of Right Hip Joint with Metal on Polyethylene Synthetic Substitute, Open Approach (ICD-10-PCS; principal; 2025-05-17 09:15)
DX: M16.11 Unilateral primary osteoarthritis, right hip (principal); I11.0 Hypertensive heart disease with heart failure; I50.9 Heart failure, unspecified; E78.00 Pure hypercholesterolemia, unspecified; K21.9 Gastro-esophageal reflux disease without esophagitis; I48.0 Paroxysmal atrial fibrillation; Z88.2 Allergy status to sulfonamides; Z79.01 Long term (current) use of anticoagulants; Z87.891 Personal history of nicotine dependence
CPT/HCPCS: 01214; 36415; 72170; 80053; 85025; 94762; 96360; 96374; 96375; 97110; 97116; 97161; 97166; 97530; 97535; A9270; C1776; J0690; J1885; J2003; J2250; J2371; J2405; J2704; J3010; J7030; J7121